=== PATIENT | male | born 1950 | race Caucasian/White ===

== ENCOUNTER → 2019-07-18 | Outpatient (CLI) | payer MEDICARE ==
[~2019-07-18] MED LIST: AMLO5TAB4 PO; ASPI-555 PO; ATOR40TA69 PO; CALC-866 PO; FERR324T4 PO; FERS325 PO; METO25 PO; TRAM50TA4 PO
== END | disposition home or self-care (01) ==
LOC: SHCH 09:48
PROVIDERS: ATTEND Internal Medicine Cardiovascular Disease
DX: I65.23 Occlusion and stenosis of bilateral carotid arteries (principal); R59.0 Localized enlarged lymph nodes; I87.2 Venous insufficiency (chronic) (peripheral)
CPT/HCPCS: 93880; 93970

== ENCOUNTER 2019-10-04 10:39 | Emergency (ER) | payer MEDICARE, OTHER | END 2019-10-04 12:22 | disposition home or self-care (01) | LOC: EDH 10:39 | DX: S20.211A Contusion of right front wall of thorax, initial encounter (principal); I10 Essential (primary) hypertension; E11.9 Type 2 diabetes mellitus without complications; I25.810 Atherosclerosis of coronary artery bypass graft(s) without angina pectoris; V29.9XXA Motorcycle rider (driver) (passenger) injured in unspecified traffic accident, initial encounter; Y93.89 Activity, other specified; Y92.89 Other specified places as the place of occurrence of the external cause; Y99.8 Other external cause status | CPT/HCPCS: 71046 ==

== ENCOUNTER → 2020-02-14 | Outpatient (CLI) | payer OTHER ==
[~2020-02-14] MED LIST changes: -ASPI-555 PO; +ASPI-556 PO
== END | disposition home or self-care (01) ==
LOC: SHCH 08:26
PROVIDERS: ATTEND Internal Medicine Cardiovascular Disease
DX: R06.00 Dyspnea, unspecified (principal)
CPT/HCPCS: 93306; 93356; 93880

== ENCOUNTER → 2020-12-12 | Outpatient (CLI) | payer OTHER | END | disposition home or self-care (01) | LOC: SHCH 08:57 | PROVIDERS: ATTEND Internal Medicine Cardiovascular Disease | DX: I73.9 Peripheral vascular disease, unspecified (principal) | CPT/HCPCS: 93925 ==

== ENCOUNTER 2023-03-02 17:54 | Emergency (ER) | payer OTHER ==
[~2023-03-02] VITALS: Ht 175.3 cm; Wt 85.3 kg
[2023-03-02] MEDS ORDERED: CEFTRIAXONE 500MG VIAL IM STA (20:50)
[2023-03-02] MEDS ORDERED: CEPH500B PO (20:52)
[2023-03-02] MEDS ORDERED: LIDOCAINE HCL 1% 20 ML VIAL ONE (20:58)
[2023-03-02] MEDS ORDERED: TETANUS/DIPHTHERIA TOXOID [ADULT] 0.5 ML VIAL IM ONE (21:00)
[2023-03-02] MEDS ORDERED: BACITRACIN 1 EACH PACKET TP ONE (21:00)
[2023-03-02 21:19] VITALS: BP 132/74
== END 2023-03-02 21:10 | disposition home or self-care (01) ==
LOC: EDH 17:54
DX: S91.111A Laceration without foreign body of right great toe without damage to nail, initial encounter (principal); E11.9 Type 2 diabetes mellitus without complications; E78.00 Pure hypercholesterolemia, unspecified; I10 Essential (primary) hypertension; Z79.82 Long term (current) use of aspirin; Z79.899 Other long term (current) drug therapy; Z95.1 Presence of aortocoronary bypass graft; X58.XXXA Exposure to other specified factors, initial encounter; Y93.89 Activity, other specified; Y92.89 Other specified places as the place of occurrence of the external cause; Y99.8 Other external cause status
CPT/HCPCS: 99283; 73630; 96372; 12002; J0696; 90714

== ENCOUNTER 2023-03-14 10:30 | Emergency (ER) | payer OTHER ==
[~2023-03-14] VITALS: Ht 175.3 cm; Wt 86.2 kg
[~2023-03-14 10:30] MED LIST changes: +CEPH500B PO
[2023-03-14 11:18] LABS: BASOPHILS % (AUTO) 0.8 % (0.0-5.0); EOSINOPHILS % (AUTO) 4.1 % (0.0-8.0); HEMATOCRIT 31.3 % (42-54); LYMPHOCYTES % (AUTO) 24.9 % (21.0-51.0); MEAN CORPUSCULAR HEMOGLOBIN 29.1 pg (27.0-33.0); MEAN CORPUSCULAR HGB CONC 31.6 g/dL (32.0-36.0); MEAN CORPUSCULAR VOLUME 92.1 fL (79-99); NEUTROPHILS % (AUTO) 60.6 % (40.0-77.0); PLATELET COUNT (AUTO) 174 K/uL (130-400); RED CELL DISTRIBUTION WIDTH 15.4 % (11.0-15.5); WHITE BLOOD COUNT (AUTO) 6.7 K/uL (4.8-10.8)
[2023-03-14] MEDS ORDERED: DOXY-469 PO (13:28)
[2023-03-14] MEDS ORDERED: DOXYCYCLINE HYCLATE 100 MG TABLET PO SCH (13:30)
[2023-03-14 13:45] VITALS: BP 142/70
[2023-03-14 13:53] LABS: CREATININE 3.7 mg/dL (0.5-1.5); POTASSIUM 4.2 mmol/L (3.5-5.1)
[2023-03-14 13:59] LABS: ALBUMIN 3.5 g/dL (3.5-5.0); TOTAL PROTEIN, SERUM 7.6 g/dL (6.0-8.3)
== END 2023-03-14 13:58 | disposition home or self-care (01) ==
LOC: EDH 10:30
DX: L03.031 Cellulitis of right toe (principal); E11.9 Type 2 diabetes mellitus without complications; I10 Essential (primary) hypertension; Z79.82 Long term (current) use of aspirin; Z79.899 Other long term (current) drug therapy; Z95.1 Presence of aortocoronary bypass graft
CPT/HCPCS: 36415; 73620; 80053; 83605; 85025; 86140

== ENCOUNTER 2023-03-28 23:14 | Emergency (ER) | payer MEDICARE, OTHER ==
[~2023-03-28] VITALS: Ht 175.3 cm; Wt 86.2 kg
[~2023-03-28 23:14] MED LIST changes: +DOXY-469 PO
[2023-03-29 00:03] LABS: BASOPHILS % (AUTO) 0.5 % (0.0-5.0); EOSINOPHILS % (AUTO) 0.8 % (0.0-8.0); HEMATOCRIT 32.7 % (42-54); LYMPHOCYTES % (AUTO) 8.8 % (21.0-51.0); MEAN CORPUSCULAR HEMOGLOBIN 30.2 pg (27.0-33.0); MEAN CORPUSCULAR HGB CONC 32.4 g/dL (32.0-36.0); MEAN CORPUSCULAR VOLUME 93.2 fL (79-99); MONOCYTES % (AUTO) 5.6 % (3.0-13.0); PLATELET COUNT (AUTO) 157 K/uL (130-400); RED BLOOD CELL COUNT(AUTO) 3.51 MIL/uL (4.50-6.20); RED CELL DISTRIBUTION WIDTH 15.6 % (11.0-15.5); WHITE BLOOD COUNT (AUTO) 10.9 K/uL (4.8-10.8)
[2023-03-29 00:19] LABS: CREATININE 3.7 mg/dL (0.5-1.5); POTASSIUM 4.3 mmol/L (3.5-5.1)
[2023-03-29 00:24] LABS: ALBUMIN 3.7 g/dL (3.5-5.0); TOTAL PROTEIN, SERUM 7.9 g/dL (6.0-8.3)
[2023-03-29] MEDS ORDERED: DEXAMETHASONE SOD PHOSPHATE 4 MG/ML 1ML VIAL IVP ONE (00:30)
[2023-03-29] MEDS ORDERED: METOCLOPRAMIDE 10 MG/2 ML VIAL IVP ONE (00:30)
[2023-03-29] MEDS ORDERED: FAMOTIDINE 20MG VIAL IV ONE (00:30)
[2023-03-29] MEDS ORDERED: LACTATED RINGERS 1000ML 1,000 ML IV ONE (00:30)
[2023-03-29 02:28] VITALS: BP 148/72
== END 2023-03-29 02:35 | disposition home or self-care (01) ==
LOC: EDH 23:14
DX: U07.1 COVID-19 (principal); E78.00 Pure hypercholesterolemia, unspecified; I10 Essential (primary) hypertension; Z79.52 Long term (current) use of systemic steroids; Z79.82 Long term (current) use of aspirin; Z79.899 Other long term (current) drug therapy; Z95.1 Presence of aortocoronary bypass graft
CPT/HCPCS: 99284; 96374; 96375; 87635; 80053; 85025; 87804 ×2; 83605; 36415; 71045; C9803; J1100; J3490; J2765

== ENCOUNTER 2023-03-30 23:59 | Emergency (ER) | payer OTHER, MEDICARE ==
[~2023-03-30] VITALS: Ht 175.3 cm; Wt 86.2 kg
[2023-03-31 00:03] VITALS: BP 152/66
[2023-03-31] MEDS ORDERED: ACETAMINOPHEN 500 MG TABLET PO ONE (05:00)
[2023-03-31] MEDS ORDERED: ALBUTEROL 0.083% 2.5 MG/3 ML INH IH ONE (05:00)
[2023-03-31] MEDS ORDERED: FAMOTIDINE 20MG VIAL IV ONE (05:00)
[2023-03-31] MEDS ORDERED: DEXAMETHASONE SOD PHOSPHATE 4 MG/ML 1ML VIAL IV ONE (05:00)
[2023-03-31 05:51] LABS: BASOPHILS % (AUTO) 0.4 % (0.0-5.0); EOSINOPHILS % (AUTO) 0.3 % (0.0-8.0); HEMATOCRIT 35.1 % (42-54); LYMPHOCYTES % (AUTO) 26.1 % (21.0-51.0); MEAN CORPUSCULAR HEMOGLOBIN 29.5 pg (27.0-33.0); MEAN CORPUSCULAR HGB CONC 31.9 g/dL (32.0-36.0); MEAN CORPUSCULAR VOLUME 92.4 fL (79-99); MONOCYTES % (AUTO) 14.8 % (3.0-13.0); NEUTROPHILS % (AUTO) 57.7 % (40.0-77.0); PLATELET COUNT (AUTO) 144 K/uL (130-400); RED CELL DISTRIBUTION WIDTH 15.6 % (11.0-15.5); WHITE BLOOD COUNT (AUTO) 6.7 K/uL (4.8-10.8)
[2023-03-31 06:23] LABS: CREATININE 3.8 mg/dL (0.5-1.5); POTASSIUM 4.2 mmol/L (3.5-5.1)
== END 2023-03-31 07:03 | disposition home or self-care (01) ==
LOC: EDH 23:59
DX: U07.1 COVID-19 (principal); I10 Essential (primary) hypertension; E11.9 Type 2 diabetes mellitus without complications; Z79.82 Long term (current) use of aspirin; Z79.899 Other long term (current) drug therapy
CPT/HCPCS: 99284; 82550; 80048; 85025; 83605; 36415; 96374; 96375; J1100; J3490

== ENCOUNTER → 2023-10-06 | Outpatient (CLI) | payer OTHER ==
[~2023-10-06] MED LIST changes: +REGADENOSON 0.4 MG/5 ML PF SYG IVP ONE
== END | disposition home or self-care (01) ==
LOC: SHCH 08:42
PROVIDERS: ATTEND Internal Medicine Cardiovascular Disease
DX: I25.10 Atherosclerotic heart disease of native coronary artery without angina pectoris (principal); I10 Essential (primary) hypertension
CPT/HCPCS: 78452; 96374; 93017; J2785; A9500 ×2

== ENCOUNTER → 2023-11-10 | Outpatient (CLI) | payer OTHER ==
[~2023-11-10] MED LIST changes: -REGADENOSON 0.4 MG/5 ML PF SYG IVP ONE
== END | disposition home or self-care (01) ==
LOC: SHCH 13:42
PROVIDERS: ATTEND Internal Medicine Cardiovascular Disease
DX: I11.9 Hypertensive heart disease without heart failure (principal); I65.23 Occlusion and stenosis of bilateral carotid arteries; E11.9 Type 2 diabetes mellitus without complications; E78.5 Hyperlipidemia, unspecified; I25.10 Atherosclerotic heart disease of native coronary artery without angina pectoris; Z95.1 Presence of aortocoronary bypass graft; Z79.82 Long term (current) use of aspirin; Z79.899 Other long term (current) drug therapy
CPT/HCPCS: 93306; 93880

== ENCOUNTER → 2024-01-01 | Outpatient (CLI) | payer OTHER ==
[~2024-01-01] MED LIST changes: +ATOR10TA69 PO; -ATOR40TA69 PO; +CALC-1125 PO; -CALC-866 PO; -CEPH500B PO; +CHOL100040 PO; +CLOP75TA32 PO; -DOXY-469 PO; +EPOE10003 IJ; -FERR324T4 PO; +LISI1TAB53 PO; -METO25 PO; +METO50TA18 PO; -TRAM50TA4 PO
== END | disposition home or self-care (01) ==
LOC: SHCH 08:03
PROVIDERS: ATTEND Internal Medicine Cardiovascular Disease
DX: I25.10 Atherosclerotic heart disease of native coronary artery without angina pectoris (principal)
CPT/HCPCS: 93975

== ENCOUNTER 2024-05-23 09:30 | Inpatient (IN) | payer OTHER ==
[~2024-05-23] VITALS: Ht 175.3 cm; Wt 76.3 kg
[2024-05-23] VITALS (20 sets, daily range): BP systolic 144–183; BP diastolic 51–90; PULSE 68–95; RESP 16–18; TEMP 97.9–99.1; O2SAT 96
[2024-05-23 11:03] LABS: BASOPHILS # (AUTO) 0.06 K/uL (0.00-0.20); EOSINOPHILS # (AUTO) 0.21 K/uL (0.00-0.70); EOSINOPHILS % (AUTO) 3.6 % (0.0-8.0); HEMATOCRIT 31.5 % (42-54); IMMATURE GRANULOCYTE ABSOLUTE 0.03 K/uL (0-1); LYMPHOCYTES # (AUTO) 1.5 K/uL (1.0-4.8); LYMPHOCYTES % (AUTO) 26.2 % (21.0-51.0); MEAN CORPUSCULAR HEMOGLOBIN 29.7 pg (27.0-33.0); MEAN CORPUSCULAR HGB CONC 31.4 g/dL (32.0-36.0); MEAN CORPUSCULAR VOLUME 94.6 fL (79-99); MONOCYTES # (AUTO) 0.4 K/uL (0.1-1.0); MONOCYTES % (AUTO) 7.1 % (3.0-13.0); NEUTROPHILS # (AUTO) 3.5 K/uL (1.8-7.7); NEUTROPHILS % (AUTO) 61.6 % (40.0-77.0); PLATELET COUNT (AUTO) 189 K/uL (130-400); RED BLOOD CELL COUNT(AUTO) 3.33 MIL/uL (4.50-6.20); RED CELL DISTRIBUTION WIDTH 15.9 % (11.0-15.5); WHITE BLOOD COUNT (AUTO) 5.8 K/uL (4.8-10.8)
[2024-05-23 11:05] LABS: INR 1.01 (0.85-1.15); PROTHROMBIN TIME 10.9 SEC (9.6-11.6)
[2024-05-23 11:06] LABS: PARTIAL THROMBOPLASTIN TIME 26.3 SEC (26.3-35.5)
[2024-05-23] MEDS ORDERED: FISH1CAP20 PO (11:08)
[2024-05-23] MEDS ORDERED: [UNRECOGNIZED DRUG - CODE] PO (11:08)
[2024-05-23] MEDS ORDERED: HYDR-3420 PO (11:08)
[2024-05-23 11:10] LABS: CREATININE 5.6 mg/dL (0.5-1.3); POTASSIUM 3.9 mmol/L (3.5-5.1)
[2024-05-23 11:19] LABS: APPEARANCE,URINE CLEAR (CLEAR); BILIRUBIN,URINE NEGATIVE (NEGATIVE); COLOR,URINE LIGHT-YELLOW (YELLOW); GLUCOSE, URINE (UA) 70 mg/dL (NEGATIVE); KETONES,URINE NEGATIVE (NEGATIVE); LEUKOCYTE ESTERASE ,URINE NEGATIVE Leu/uL (NEGATIVE); NITRATE,URINE NEGATIVE (NEGATIVE); PROTEIN,URINE 300 mg/dL (NEGATIVE); UROBILINOGEN,URINE 0.2 mg/dL (0.2-1.0)
[2024-05-23 11:20] LABS: ADD UA MICROSCOPIC YES
[2024-05-23 11:28] LABS: BACTERIA,URINE RARE /HPF (None Seen); MUCUS,URINE RARE LPF (None Seen); RBC,URINE 0-1 /HPF (0-1); SQUAMOUS EPITHELIAL CELL,UR RARE /HPF (0-2)
[2024-05-23 11:29] LABS: % IRON SATURATION 45.8 % (30-44)
[2024-05-23] MEDS ORDERED: ONDANSETRON 4MG INJ IVP PRN (11:30)
[2024-05-23] MEDS ORDERED: acetaMINOPHEN 325 MG TAB PO PRN (11:30)
[2024-05-23 11:35] LABS: ALBUMIN 2.9 g/dL (3.5-5.0); BILIRUBIN,TOTAL 0.3 mg/dL (0.2-1.0); TOTAL PROTEIN, SERUM 6.6 g/dL (6.0-8.3)
[2024-05-23 12:00] LABS: HIV 1&2 ANTIBODY Non-Reactive (Negative); HIV-1 p24 Antigen Non-Reactive (Negative)
[2024-05-23] MEDS ORDERED: LIDOCAINE HCL 400MG/20ML VIAL ONE (13:36)
[2024-05-23] MEDS ORDERED: HEParin-NS 1,000 UNIT/500 ML 500 ML IV ONE (13:37)
[2024-05-23] MEDS ORDERED: FENTanyl CITRate PF 50 MCG/1 ML 2ML VIAL ONE (13:37)
[2024-05-23] MEDS ORDERED: MIDAZOLAM HCL 1 MG/ML 2ML VIAL ONE (13:37)
[2024-05-23] MEDS ORDERED: HEParin 1,000 UNIT VIAL ONE (13:38)
[2024-05-23] MEDS: 0.9%NACL 1000ML 1,000 ML IV SCH (15:46)
[2024-05-23] MEDS: hydrALAZine 20MG/ML VIAL IV PRN (18:42)
[2024-05-23] MEDS: hydrALAZine HCL 10 MG TABLET PO SCH (20:39)
[2024-05-23] MEDS: FISH OIL 1000 MG/CAP PO SCH (20:40)
[2024-05-23] MEDS: metoPROLOL tartRATE 50 MG TAB PO SCH (20:40)
[2024-05-23] MEDS: atorVAStatin 10 MG TABLET PO SCH (20:46)
[2024-05-24] VITALS (21 sets, daily range): BP systolic 128–175; BP diastolic 60–86; PULSE 66–89; RESP 16–20; TEMP 97.9–99.1; O2SAT 96–99
[2024-05-24 04:10] LABS: HEPATITIS B CORE AB TOTAL Non-Reactive (Nonreactive); HEPATITIS B SURFACE ANTIBODY Negative (Reactive); HEPATITIS B SURFACE ANTIGEN Non-Reactive (Nonreactive)
[2024-05-24 04:21] LABS: BASOPHILS # (AUTO) 0.04 K/uL (0.00-0.20); BASOPHILS % (AUTO) 0.8 % (0.0-5.0); EOSINOPHILS # (AUTO) 0.17 K/uL (0.00-0.70); EOSINOPHILS % (AUTO) 3.3 % (0.0-8.0); HEMATOCRIT 27.2 % (42-54); IMMATURE GRANULOCYTE ABSOLUTE 0.01 K/uL (0-1); LYMPHOCYTES # (AUTO) 1.4 K/uL (1.0-4.8); LYMPHOCYTES % (AUTO) 27.9 % (21.0-51.0); MEAN CORPUSCULAR HEMOGLOBIN 29.6 pg (27.0-33.0); MEAN CORPUSCULAR HGB CONC 32.4 g/dL (32.0-36.0); MEAN CORPUSCULAR VOLUME 91.6 fL (79-99); MONOCYTES # (AUTO) 0.5 K/uL (0.1-1.0); MONOCYTES % (AUTO) 10.4 % (3.0-13.0); NEUTROPHILS # (AUTO) 2.9 K/uL (1.8-7.7); NEUTROPHILS % (AUTO) 57.4 % (40.0-77.0); PLATELET COUNT (AUTO) 147 K/uL (130-400); RED BLOOD CELL COUNT(AUTO) 2.97 MIL/uL (4.50-6.20); RED CELL DISTRIBUTION WIDTH 15.2 % (11.0-15.5); WHITE BLOOD COUNT (AUTO) 5.1 K/uL (4.8-10.8)
[2024-05-24 04:37] LABS: HEMOGLOBIN A1C 5.9 % (4.0-6.0)
[2024-05-24 04:44] LABS: CREATININE 4.4 mg/dL (0.5-1.3); PHOSPHORUS 5.1 mg/dL (2.5-4.9); POTASSIUM 3.1 mmol/L (3.5-5.1); THYROID STIMULATING HORMONE 2.12 uIU/mL (0.36-3.74)
[2024-05-24] MEDS: Cholecalciferol (Vitamin D3) 25 MCG PO SCH (09:00)
[2024-05-24] MEDS: amLODIPine 5 MG TAB PO SCH (09:00)
[2024-05-24] MEDS: FERROUS SULFATE 325 MG TABLET.DR PO SCH (09:00)
[2024-05-24] MEDS: ASPIRIN 81 MG EC TAB PO SCH (09:00)
[2024-05-24] MEDS ORDERED: NON-FORMULARY MEDICATION 1 EACH (Ferrous Sulfate 325 MG) PO SCH (09:00)
[2024-05-24] MEDS ORDERED: 0.9%NACL 1000ML 1,000 ML IV SCH (09:30)
[2024-05-24] MEDS: LISINOPRIL 40 MG TABLET PO ONE ×2 (10:11→14:52)
[2024-05-24] MEDS: metOPROLol sucCINATE 50 MG TAB.SR.24H PO ONE (14:54)
[2024-05-24] MEDS ORDERED: PHARMACY COMMUNICATION MISC SCH (16:30)
[2024-05-24] MEDS: EPOETIN ALFA-EPBX (NON-ESRD) 10,000 UNIT/ML VIAL SQ SCH (16:38)
[2024-05-25] VITALS (12 sets, daily range): BP systolic 124–154; BP diastolic 48–71; PULSE 65–82; RESP 18–20; TEMP 97.8–98.4; O2SAT 96
[2024-05-25 05:26] LABS: BASOPHILS # (AUTO) 0.05 K/uL (0.00-0.20); EOSINOPHILS # (AUTO) 0.19 K/uL (0.00-0.70); EOSINOPHILS % (AUTO) 3.6 % (0.0-8.0); HEMATOCRIT 28.7 % (42-54); IMMATURE GRANULOCYTE ABSOLUTE 0.01 K/uL (0-1); LYMPHOCYTES # (AUTO) 1.9 K/uL (1.0-4.8); LYMPHOCYTES % (AUTO) 36.9 % (21.0-51.0); MEAN CORPUSCULAR HEMOGLOBIN 29.8 pg (27.0-33.0); MEAN CORPUSCULAR HGB CONC 32.4 g/dL (32.0-36.0); MONOCYTES # (AUTO) 0.6 K/uL (0.1-1.0); MONOCYTES % (AUTO) 12.3 % (3.0-13.0); NEUTROPHILS # (AUTO) 2.4 K/uL (1.8-7.7); PLATELET COUNT (AUTO) 150 K/uL (130-400); RED BLOOD CELL COUNT(AUTO) 3.12 MIL/uL (4.50-6.20); RED CELL DISTRIBUTION WIDTH 15.1 % (11.0-15.5); WHITE BLOOD COUNT (AUTO) 5.2 K/uL (4.8-10.8)
[2024-05-25 05:38] LABS: ALBUMIN 2.3 g/dL (3.5-5.0); BILIRUBIN,TOTAL 0.3 mg/dL (0.2-1.0); CREATININE 3.7 mg/dL (0.5-1.3); MAGNESIUM 1.3 mg/dL (1.80-2.40); POTASSIUM 3.1 mmol/L (3.5-5.1); TOTAL PROTEIN, SERUM 5.6 g/dL (6.0-8.3)
[2024-05-25] MEDS ORDERED: LIDOCAINE HCL 400MG/20ML VIAL ONE (08:28)
[2024-05-25] MEDS ORDERED: HEParin 1,000 UNIT VIAL ONE (08:28)
[2024-05-25] MEDS ORDERED: MIDAZOLAM HCL 1 MG/ML 2ML VIAL ONE (08:49)
[2024-05-25] MEDS ORDERED: FENTanyl CITRate PF 50 MCG/1 ML 2ML VIAL ONE (08:49)
[2024-05-25] MEDS ORDERED: metOPROLol sucCINATE 50 MG TAB.SR.24H PO SCH (09:00)
[2024-05-25] MEDS ORDERED: MAGNESIUM 2GM PREMIX 50ML 50 ML IV SCH (10:30)
[2024-05-25] MEDS: KCL 20 MEQ ERTAB PO ONE (13:08)
[2024-05-25] MEDS: LISINOPRIL 40 MG TABLET PO SCH (16:39)
[2024-05-25] MEDS: metOPROLol sucCINATE 50 MG TAB.SR.24H PO SCH (20:36)
[2024-05-26] VITALS (20 sets, daily range): BP systolic 139–182; BP diastolic 57–88; PULSE 60–76; RESP 16–20; TEMP 97.6–98.9; O2SAT 95–96
[2024-05-26 03:56] LABS: BASOPHILS # (AUTO) 0.05 K/uL (0.00-0.20); BASOPHILS % (AUTO) 0.8 % (0.0-5.0); EOSINOPHILS # (AUTO) 0.22 K/uL (0.00-0.70); EOSINOPHILS % (AUTO) 3.5 % (0.0-8.0); HEMATOCRIT 28.6 % (42-54); IMMATURE GRANULOCYTE ABSOLUTE 0.02 K/uL (0-1); LYMPHOCYTES # (AUTO) 2.2 K/uL (1.0-4.8); LYMPHOCYTES % (AUTO) 34.6 % (21.0-51.0); MEAN CORPUSCULAR HEMOGLOBIN 29.7 pg (27.0-33.0); MEAN CORPUSCULAR HGB CONC 31.8 g/dL (32.0-36.0); MEAN CORPUSCULAR VOLUME 93.5 fL (79-99); MONOCYTES # (AUTO) 0.6 K/uL (0.1-1.0); MONOCYTES % (AUTO) 10.1 % (3.0-13.0); NEUTROPHILS # (AUTO) 3.1 K/uL (1.8-7.7); NEUTROPHILS % (AUTO) 50.7 % (40.0-77.0); PLATELET COUNT (AUTO) 155 K/uL (130-400); RED BLOOD CELL COUNT(AUTO) 3.06 MIL/uL (4.50-6.20); WHITE BLOOD COUNT (AUTO) 6.2 K/uL (4.8-10.8)
[2024-05-26 04:13] LABS: ALBUMIN 2.3 g/dL (3.5-5.0); BILIRUBIN,TOTAL 0.3 mg/dL (0.2-1.0); CREATININE 4.1 mg/dL (0.5-1.3); MAGNESIUM 1.4 mg/dL (1.80-2.40); PHOSPHORUS 5.1 mg/dL (2.5-4.9); POTASSIUM 3.3 mmol/L (3.5-5.1); TOTAL PROTEIN, SERUM 5.6 g/dL (6.0-8.3)
[2024-05-26] MEDS: 0.9%NACL 1000ML 1,000 ML IV SCH (10:00)
[2024-05-26] MEDS ORDERED: 0.9% NACL 250ML 250 ML IV SCH (10:00)
[2024-05-26] MEDS: HEParin 5,000 UNIT VIAL SQ SCH (11:22)
[2024-05-26] MEDS ORDERED: MAGNESIUM 2GM PREMIX 50ML 50 ML IV SCH (16:00)
[2024-05-26] MEDS: KCL 20 MEQ ERTAB PO ONE (19:59)
[2024-05-26] MEDS: metOPROLol sucCINATE 50 MG TAB.SR.24H PO SCH (20:27)
[2024-05-26] MEDS: hydrALAZine 25MG TABLET PO SCH (20:27)
[2024-05-27] VITALS (8 sets, daily range): BP systolic 137–167; BP diastolic 56–88; PULSE 66–80; RESP 18–19; TEMP 98.1–99.2; O2SAT 95–98
[2024-05-27 05:19] LABS: HEMATOCRIT 28.6 % (42-54); MEAN CORPUSCULAR HEMOGLOBIN 29.7 pg (27.0-33.0); MEAN CORPUSCULAR HGB CONC 31.5 g/dL (32.0-36.0); MEAN CORPUSCULAR VOLUME 94.4 fL (79-99); RED BLOOD CELL COUNT(AUTO) 3.03 MIL/uL (4.50-6.20); RED CELL DISTRIBUTION WIDTH 15.1 % (11.0-15.5); WHITE BLOOD COUNT (AUTO) 6.4 K/uL (4.8-10.8)
[2024-05-27 05:35] LABS: ALBUMIN 2.3 g/dL (3.5-5.0); BILIRUBIN,TOTAL 0.3 mg/dL (0.2-1.0); CREATININE 3.2 mg/dL (0.5-1.3); MAGNESIUM 1.3 mg/dL (1.80-2.40); POTASSIUM 3.5 mmol/L (3.5-5.1); TOTAL PROTEIN, SERUM 5.7 g/dL (6.0-8.3)
[2024-05-27] MEDS: MAGNESIUM 2GM PREMIX 50ML 50 ML IV SCH (13:11)
[2024-05-27] MEDS: KCL 20 MEQ ERTAB PO ONE (13:11)
[2024-05-28] VITALS (21 sets, daily range): BP systolic 137–180; BP diastolic 51–74; PULSE 55–72; RESP 16–18; TEMP 97.6–98.7; O2SAT 99
[2024-05-28] MEDS ORDERED: 0.9%NACL 1000ML 1,000 ML IV PRN (12:00)
== END 2024-05-28 14:00 | disposition home or self-care (01) | DRG 673 ==
LOC: EDH 09:30 → EDHIP 09:31 → 4CH 12:52
PROVIDERS: ADMIT Hospitalist; ATTEND Hospitalist
PROC: 5A1D70Z Performance of Urinary Filtration, Intermittent, Less than 6 Hours Per Day (ICD-10-PCS; 2024-05-23)
PROC: 5A1D70Z Performance of Urinary Filtration, Intermittent, Less than 6 Hours Per Day (ICD-10-PCS; 2024-05-24)
PROC: 0JH63XZ Insertion of Tunneled Vascular Access Device into Chest Subcutaneous Tissue and Fascia, Percutaneous Approach (ICD-10-PCS; principal; 2024-05-25)
PROC: 02H633Z Insertion of Infusion Device into Right Atrium, Percutaneous Approach (ICD-10-PCS; 2024-05-25)
PROC: B5181ZA Fluoroscopy of Superior Vena Cava using Low Osmolar Contrast, Guidance (ICD-10-PCS; 2024-05-25)
PROC: 05HM33Z Insertion of Infusion Device into Right Internal Jugular Vein, Percutaneous Approach (ICD-10-PCS; 2024-05-25)
PROC: B543ZZA Ultrasonography of Right Jugular Veins, Guidance (ICD-10-PCS; 2024-05-25)
PROC: 5A1D70Z Performance of Urinary Filtration, Intermittent, Less than 6 Hours Per Day (ICD-10-PCS; 2024-05-26)
PROC: 5A1D70Z Performance of Urinary Filtration, Intermittent, Less than 6 Hours Per Day (ICD-10-PCS; 2024-05-28)
DX: I12.0 Hypertensive chronic kidney disease with stage 5 chronic kidney disease or end stage renal disease (principal); N18.6 End stage renal disease; Z99.2 Dependence on renal dialysis; E78.5 Hyperlipidemia, unspecified; I25.10 Atherosclerotic heart disease of native coronary artery without angina pectoris; D63.1 Anemia in chronic kidney disease; E11.22 Type 2 diabetes mellitus with diabetic chronic kidney disease; E11.51 Type 2 diabetes mellitus with diabetic peripheral angiopathy without gangrene; E11.40 Type 2 diabetes mellitus with diabetic neuropathy, unspecified; Z79.899 Other long term (current) drug therapy; Z95.1 Presence of aortocoronary bypass graft; I25.2 Old myocardial infarction; Z79.4 Long term (current) use of insulin
CPT/HCPCS: 36415; 36556; 36581; 71045; 77001; 80048; 80053; 80061; 81001; 82728; 82948; 83036; 83540; 83550; 83735; 84100; 84443; 85025; 85027; 85610; 85730; 86701; 86704; 86706; 86803; 87340; 87390; 90935; 93005; 93971; 99156; 99157; C1750; C1752; G0378; J0360; J1644; J2250; J3010; J3475; J3490; C1894; Q5106

== ENCOUNTER 2024-10-17 09:02 | Day surgery (SDC) | payer OTHER ==
[2024-10-17] VITALS (16 sets, daily range): BP systolic 119–158; BP diastolic 49–65; PULSE 56–70; RESP 13–16; TEMP 97.2–97.3
[~2024-10-17] VITALS: Ht 172.7 cm; Wt 78.9 kg
[~2024-10-17 09:02] MED LIST changes: +0.9% NACL 500ML IV.SOLN 500 ML IV ONE; -AMLO5TAB4 PO; -CLOP75TA32 PO; -EPOE10003 IJ; +FISH1CAP20 PO; -LISI1TAB53 PO; +RENVELA PO; +ceFAZolin SODIUM 2 GM VIAL ONE
[2024-10-17 09:29] LABS: HEMATOCRIT 36.7 % (42-54); MEAN CORPUSCULAR HEMOGLOBIN 32.8 pg (27.0-33.0); MEAN CORPUSCULAR HGB CONC 32.4 g/dL (32.0-36.0); MEAN CORPUSCULAR VOLUME 101.1 fL (79-99); RED BLOOD CELL COUNT(AUTO) 3.63 MIL/uL (4.50-6.20); RED CELL DISTRIBUTION WIDTH 14.8 % (11.0-15.5); WHITE BLOOD COUNT (AUTO) 6.4 K/uL (4.8-10.8)
[2024-10-17 09:39] LABS: CREATININE 5.3 mg/dL (0.5-1.3)
[2024-10-17 09:41] LABS: INR 0.97 (0.85-1.15); PROTHROMBIN TIME 10.9 SEC (9.6-11.6)
[2024-10-17 09:43] LABS: PARTIAL THROMBOPLASTIN TIME 25.4 SEC (26.3-35.5)
--- NOTE | 2024-10-17 10:00 | HMCIMG ---
CHEST 1VW HISTORY: Surgery COMPARISON: 07/06/2024 FINDINGS: A frontal projection of the chest was obtained. No acute pulmonary infiltrates is seen. Poststernotomy changes are seen. The heart is enlarged. Degenerative changes of the thoracolumbar spine are present. Right venous catheter is seen. No evidence of aortic calcification is seen. IMPRESSION: 1. No acute pulmonary infiltrate is seen.
--- NOTE | 2024-10-17 10:08 | EKG ---
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
[2024-10-17] MEDS ORDERED: INSNOV SQ (10:12)
[2024-10-17] MEDS ORDERED: AMLO-257 PO (10:12)
[2024-10-17] MEDS ORDERED: SEVE800PW PO (10:12)
[2024-10-17] MEDS ORDERED: LIDOCAINE PF 100MG/5ML (2%) SYRINGE 5ML ONE (10:14)
[2024-10-17] MEDS ORDERED: rocuRONium bROMide 10MG/1ML 5ML VL ONE (10:15)
[2024-10-17] MEDS ORDERED: proPOFol 10 MG/ML 20ML VIAL IV ONE (10:15)
[2024-10-17] MEDS ORDERED: FENTanyl CITRate PF 50 MCG/1 ML 2ML VIAL ONE (10:16)
[2024-10-17] MEDS ORDERED: acetaMINOPHEN 100 ML ONE (10:26)
[2024-10-17] MEDS ORDERED: FAMOTIDINE 20MG VIAL IV ONE (10:27)
[2024-10-17] MEDS ORDERED: HEParin-NS 1,000 UNIT/500 ML 500 ML IV ONE (10:37)
[2024-10-17] MEDS ORDERED: BUPIvacaine/PF 0.25% 30ML VIAL IJ ONE (10:37)
[2024-10-17] MEDS ORDERED: LIDOCAINE HCL 1% 20 ML VIAL ONE (10:37)
[2024-10-17] MEDS ORDERED: ceFAZolin SODIUM 1 GM VIAL ONE (10:37)
[2024-10-17] MEDS: ceFAZolin SODIUM 2 GM VIAL IVPB ONE (11:08)
[2024-10-17] MEDS ORDERED: ondanSETRON 4MG INJ ONE (12:09)
[2024-10-17] MEDS ORDERED: dexaMETHasone SOD PHOSPHATE 10MG/ML 1ML VIAL ONE (12:09)
[2024-10-17] MEDS ORDERED: NEOSTIGMINE METHYLSULFATE 1MG/ML IV ONE (12:23)
[2024-10-17] MEDS ORDERED: GLYCOPYRROLATE 0.2 MG/ML 5 ML VIAL ONE (12:23)
[2024-10-17] MEDS ORDERED: PROTamine SULFate 10 MG/ML 5 ML VIAL ONE (12:50)
[2024-10-17] MEDS ORDERED: HEParin 10,000 UNIT/10ML (1,000 UNIT/ML) VIAL ONE (12:50)
--- NOTE | 2024-10-17 17:11 | OP ---
DATE OF PROCEDURE: 10/17/2024 PREOPERATIVE DIAGNOSIS: End-stage renal disease. POSTOPERATIVE DIAGNOSIS: End-stage renal disease. PROCEDURE PERFORMED: Left brachiocephalic AV fistula. OPERATING SURGEON: Venkata Cisneros MD MEDIA OPERATOR: Luciana Madrid. TYPE OF ANESTHESIA: General endotracheal anesthesia delivered by a EMERGENCY VEHICLE OPERATIONS INSTRUCTOR. BRIEF HISTORY: The patient is a 74-year-old male with end-stage renal disease, hyperlipidemia, hypertension, diabetes mellitus, and known coronary artery disease, who requires hemodialysis access. He presents now for a left-sided AV fistula. FINDINGS: The patient had a 4 mm cephalic vein at the antecubital fossa and a roughly 4 mm brachial artery. A brachiocephalic AV fistula was performed. DESCRIPTION OF PROCEDURE: The patient was brought to the operating room and placed on the operating table in supine position. He was given general endotracheal anesthesia. After placement of lines and catheters, his left arm was prepped and draped in the usual sterile fashion. A transverse incision was made in the left antecubital fossa and the left cephalic vein and brachial artery dissected out. The patient was given 5000 units of heparin. The cephalic vein was doubly clipped distally and divided. The brachial artery was then clamped proximal and distal to the target site, which was opened on its anterior wall with 11 blade scalpel and 2 firings of a 2.8 mm hole punch. The proximal end of the cephalic vein was anastomosed to the side of the brachial artery using a running 7-0 Prolene suture. The clamps were released and there was good flow into the cephalic vein as measured by Doppler. The patient was given 50 mg of protamine. The wound was injected with a total of 9 mL of a 50:50 mixture of 1% lidocaine and 0.25% Marcaine for postop pain relief. The wound was then closed with 2 layers of running Vicryl suture. The skin was closed using a running intracuticular Monocryl stitch. The wounds were cleaned and dried, covered with bandages. The patient was undraped, extubated, and taken to the recovery room and then to Outpatient Surgery in stable condition. TID: [id number] RECEIPT: [id number] cc: MATTHIAS GUERRA MD(User), Luciana Madrid
== END 2024-10-17 14:46 | disposition home or self-care (01) ==
LOC: DAH 09:02 → DAHIP 09:02 → DAH 09:19
PROVIDERS: ATTEND Thoracic Surgery (Cardiothoracic Vascular Surgery)
DX: I12.0 Hypertensive chronic kidney disease with stage 5 chronic kidney disease or end stage renal disease (principal); N18.6 End stage renal disease; E11.22 Type 2 diabetes mellitus with diabetic chronic kidney disease; E78.5 Hyperlipidemia, unspecified; I25.2 Old myocardial infarction; I25.10 Atherosclerotic heart disease of native coronary artery without angina pectoris; Z79.82 Long term (current) use of aspirin; Z99.2 Dependence on renal dialysis; Z95.1 Presence of aortocoronary bypass graft; Z79.84 Long term (current) use of oral hypoglycemic drugs; Z79.899 Other long term (current) drug therapy
CPT/HCPCS: 36821; 80048; 85027; 85610; 85730; 86850; 86900; 86901; 82948 ×2; 36415; 71045; 93005; A4663; J7030; J7040; J3490 ×3; J3010; J0690 ×4; J1100; J0665 ×2; J2003; J2720; J1644 ×2; J2704; J2405; J2710; A4649; C1713 ×2; A4215; A4223; A4222; A4221

== ENCOUNTER 2024-11-18 18:36 | Emergency (ER) | payer OTHER ==
[~2024-11-18] VITALS: Ht 175.3 cm; Wt 77.1 kg
[~2024-11-18 18:36] MED LIST changes: -0.9% NACL 500ML IV.SOLN 500 ML IV ONE; +AMLO-257 PO; +INSNOV SQ; -RENVELA PO; +SEVE800PW PO; -ceFAZolin SODIUM 2 GM VIAL ONE
--- NOTE | 2024-11-18 18:59 | ERN ---
ED Note History of Present Illness Stated Complaint: TOE LAC Chief Complaint: Laceration/Avulsion Time Seen by MD: 18:45 Time Seen by Midlevel: 18:45 Dictation: 74-year-old male history of DM, who presents to the ED for evaluation laceration to his right great toe. Patient reports he got his toe stuck in rug and cut himself. Allergies: Coded Allergies: No Known Drug Allergies (Unverified Allergy, Unknown, 01/03/19) Home Meds Active Scripts Cephalexin Monohydrate (Keflex) 500 Mg Cap, 1 CAP PO TID for 7 Days, #30 CAP 0 Refills Prov:LIA GUERRA 11/18/24 Reported Medications Amlodipine Besylate (Amlodipine Besylate) 5 Mg Tablet, 5 MG PO DAILY, TAB 10/17/24 Sevelamer Carbonate (Renvela Pwdr) 0.8 Gram Powder, 800 MG PO TID, APPL 10/17/24 Insulin Aspart (Novolog) 100 Unit/Ml Inj, SQ CONTINUOUS, ML 10/17/24 [place]-3 Fatty Acids/Fish Oil (Fish Oil 1000 mg/Cap) 300 Mg-1,000 Mg Capsule, 1000 MG PO BID, CAP 05/23/24 Calcium Carbonate (Calcium) 600 Mg Calcium (1500 Mg) Tablet, 600 MG PO BID, TAB 12/01/23 Cholecalciferol (Vitamin D3) (Vitamin D3) 25 Mcg (1000 Unit) Capsule, 25 MCG PO AM, CAP 11/27/23 Metoprolol Tartrate (Metoprolol Tartrate) 50 Mg Tablet, 50 MG PO HS, TAB 11/27/23 Atorvastatin Calcium (Atorvastatin Calcium) 10 Mg Tablet, 5 MG PO HS, TAB 11/27/23 Aspirin (Aspir 81) 81 Mg Tablet.dr, 81 MG PO HS, TAB 01/03/19 Ferrous Sulfate (Ferrous Sulfate) 325 Mg (65 Mg Iron) Ectab, 325 MG PO TUES,TH,SAT, TAB.EC 01/03/19 Past Medical History Past Medical History: Diabetes-Type II, Heart Disease, Hypertension, [place], Renal Failure Surgical History: CABG Surgical History Other: PORT-A-CATH RN Note Reviewed/Agreed w/PFSH: Yes Review of System Dictation Constitutional: Negative for fever,chills, and weight loss Eyes: Negative for injury, pain,redness, and discharge ENT: Negative for injury,pain or swelling Cardiovascular: Negative for chest pain, palpitations, and edema Respiratory: Negative for shortness of breath, cough, and wheezing, Abdomen/GI: Negative for abdominal pain, nausea, vomiting, diarrhea, and cons tipation Back: Negative for injury and pain : Negative for injury, bleeding and discharge MS/Extremity: Negative for injury and deformity Skin: Negative for rash, and discoloration Neuro: Negative for headache, weakness, numbness, tingling, and seizure Psych: Negative for suicide ideation, homicidal ideation, and hallucinations Review of Systems: was completed Initial Vital Sign VS Vital Signs Date Time Temp Pulse Resp B/P (MAP) Pulse Ox O2 Delivery O2 Flow Rate FiO2 11/18/24 18:38 59 18 128/49 98 Room Air 0 11/18/24 22:24 97.9 21 Physical Exam Dictation General: awake, alert, NAD Head/Face: Normocephalic, atraumatic Eyes: PERRL, EOMI, vision at baseline ENT: oral cavity clear, TMs clear, no signs of infection Neck: Trachea midline, supple, no nuchal rigidity Cardiovascular: RRR, normal S1/S2, No MRGs, no JVD Respiratory: CTAB, no respiratory distress, No rales or wheezes Abdomen: Soft, non-tender, non-distended, normal bowel sounds, no guarding or rebound. Skin: Warm, dry, normal turgor, no rash. Small skin tear to right great toe at the base,. Nailbed intact MS/Extremity: Pulses equal, no cyanosis, neurovascular intact, FROM Neuro: COAx4, GCS 15, strength 5/5, CN 2-12 intact, normal cerebellar exam, normal gait, Psych: Normal behavior, mood, and affect normal Results (Laboratory/Radiology) Labs Reviewed?: Yes X-RAY Comment: PATIENT: REZA KOHLER MR#: [id number] : 1950 SEX: M AGE: 74 LOCATION: [facility] ORDER 54 STATUS: REG ER REPORT#: [id number] SERVICE 53 REASON: toe injury, laceration ORDERING PHYSICIAN: LIA GUERRA PROCEDURE: TOES RT - TOE(S) 2+VWS RT TOE(S) 2+VWS RT CLINICAL HISTORY: toe injury, laceration COMPARISON: None TECHNIQUE: AP lateral and oblique images were obtained. FINDINGS: There is soft tissue laceration of the first digit and remodeling of the distal phalanx but no obvious acute fracture line or foreign body. IMPRESSION: Soft tissue laceration with no identified fracture or foreign body. DICTATED BY: KAROLINA RATLIFF DO DATE: 11/18/242050 ELECTRONICALLY SIGNED BY: KAROLINA RATLIFF DO DATE: 11/18/242058 ED Course ED Course Orders Procedure Category Date Status Time Toe(S) 2+Vws Rt RAD 11/18/24 Resulted 18:54 Cefazolin Sodium PHA 11/18/24 Complete (Ancef) 20:49 Diph,Pertuss(Acell),Tet PHA 11/18/24 Complete Vac/Pf (Tdap) 21:00 Current Medications Medications (Trade) Dose Ordered Sig/Tahmina Route PRN Reason Start Time Stop Time Status Last Admin Dose Admin Cefazolin Sodium (Ancef) 2 gm ONCE IVPB 11/18/24 20:49 11/18/24 23:57 DC 11/18/24 22:23 Diphtheria/ Tetanus/Acell Pertussis (Tdap) 0.5 ml ONCE ONCE IM 11/18/24 21:00 11/18/24 21:01 DC 11/18/24 22:21 Vital Signs Date Time Temp Pulse Resp B/P (MAP) Pulse Ox O2 Delivery O2 Flow Rate FiO2 11/18/24 22:24 97.9 78 20 131/74 98 Room Air* 0 21 11/18/24 18:38 59 18 128/49 98 Room Air 0 Medical Decision Making MDM MDM: Differential diagnosis: Fracture, dislocation, laceration, skin tear, abrasion Need for hospitalization: Patient does meet criteria for hospitalization. Need for emergency major/minor surgery: No I independently interpreted the test that were performed, results were reviewed by me and considered findings on radiology if ordered. Medical management and examination interpretation discussions were had by me with other qualified healthcare professionals as indicated for the patient's care. Patient coming in with a small laceration to the right great toe. Nail bed intact. X-ray reports no acute fracture but my independent interpretation shows possible fracture of the toe and based on pain to palpation will treat as such. Patient was given dose of Ancef here in the ER and updated on Tdap. Bleeding was controlled with, gauze and pressure wrapping. Normal capillary refill less than 2 seconds. No need for sutures at this time but educated patient return precautions. Patient was diabetic on be discharged home with antibiotics. Recommended follow up with Podiatry or ortho. Patient was given referral to both. Patient also recommended follow up with PCP. Patient verbalized understanding, agreed with the plan, and all questions were answered at this time. DX & DISP Disposition: Discharge Departure Impression: Primary Impression: Laceration of right great toe Additional Impression: possible fracture right great toe Condition: Stable Scripts Cephalexin Monohydrate (Keflex) 500 Mg Cap 1 CAP PO TID for 7 Days, #30 CAP 0 Refills Prov: LIA GUERRA 11/18/24 Additional Instructions: DISCHARGE HOME. REST. FOLLOW UP WITH PRIMARY CARE DRJorge IN 24 HOURS. RETURN TO THE ER FOR ANY ACUTE CHANGE. PATIENT WAS ALSO ADVISED TO FOLLOW-UP WITH PRIMARY CARE PHYSICIAN IN 1 TO 2 DAYS FOR CONTINUED MONITORING. ALL INSTRUCTIONS WERE GIVEN TO LAYMANS TERM AND PATIENT AGREEABLE TO DISCHARGE AND PROPER FOLLOW-UP. Referrals: HUSSEIN ROBLERO MD (PCP) VERA GEIGER MD, LUIS R DPM I have reviewed the case, and I agree with, Diagnosis and Plan LIA GUERRA Nov 18, 2024 18:59
--- NOTE | 2024-11-18 20:59 | HMCIMG ---
TOE(S) 2+VWS RT CLINICAL HISTORY: toe injury, laceration COMPARISON: None TECHNIQUE: AP lateral and oblique images were obtained. FINDINGS: There is soft tissue laceration of the first digit and remodeling of the distal phalanx but no obvious acute fracture line or foreign body. IMPRESSION: Soft tissue laceration with no identified fracture or foreign body.
[2024-11-18] MEDS: DIPH,PERTUSS(ACELL),TET VAC/PF 0.5 ML VIAL IM ONE (22:21)
[2024-11-18] MEDS: ceFAZolin SODIUM 2 GM VIAL IVPB SCH (22:23)
[2024-11-18 22:24] VITALS: BP 131/74; PULSE 78; RESP 20; TEMP 97.8; O2SAT 98
[2024-11-18] MEDS ORDERED: CEPH500B PO (23:29)
== END 2024-11-18 23:57 | disposition home or self-care (01) ==
LOC: EDH 18:36
DX: S91.111A Laceration without foreign body of right great toe without damage to nail, initial encounter (principal); E11.9 Type 2 diabetes mellitus without complications; I11.9 Hypertensive heart disease without heart failure; Z79.82 Long term (current) use of aspirin; Z95.1 Presence of aortocoronary bypass graft; W26.8XXA Contact with other sharp object(s), not elsewhere classified, initial encounter; Y93.89 Activity, other specified; Y92.89 Other specified places as the place of occurrence of the external cause; Y99.8 Other external cause status
CPT/HCPCS: 99284; 96365; 90715; 73660; 90471; J0690

== ENCOUNTER 2024-12-03 13:10 | Emergency (ER) | payer OTHER, MEDICARE ==
[~2024-12-03] VITALS: Ht 172.7 cm; Wt 77.1 kg
[~2024-12-03 13:10] MED LIST changes: +CEPH500B PO
[2024-12-03 14:12] LABS: BASOPHILS # (AUTO) 0.06 K/uL (0.00-0.20); BASOPHILS % (AUTO) 0.8 % (0.0-5.0); EOSINOPHILS # (AUTO) 0.24 K/uL (0.00-0.70); HEMATOCRIT 40.5 % (42-54); IMMATURE GRANULOCYTE ABSOLUTE 0.02 K/uL (0-1); LYMPHOCYTES # (AUTO) 2.3 K/uL (1.0-4.8); MEAN CORPUSCULAR HEMOGLOBIN 33.8 pg (27.0-33.0); MEAN CORPUSCULAR HGB CONC 32.3 g/dL (32.0-36.0); MEAN CORPUSCULAR VOLUME 104.4 fL (79-99); MONOCYTES # (AUTO) 0.7 K/uL (0.1-1.0); MONOCYTES % (AUTO) 8.7 % (3.0-13.0); NEUTROPHILS # (AUTO) 4.6 K/uL (1.8-7.7); NEUTROPHILS % (AUTO) 58.2 % (40.0-77.0); PLATELET COUNT (AUTO) 149 K/uL (130-400); RED BLOOD CELL COUNT(AUTO) 3.88 MIL/uL (4.50-6.20); RED CELL DISTRIBUTION WIDTH 14.2 % (11.0-15.5); WHITE BLOOD COUNT (AUTO) 7.9 K/uL (4.8-10.8)
[2024-12-03 14:26] LABS: CREATININE 6.4 mg/dL (0.5-1.3); POTASSIUM 3.9 mmol/L (3.5-5.1)
[2024-12-03] MEDS ORDERED: SULF1TAB42 PO (15:14)
[2024-12-03] MEDS ORDERED: CEPH500B PO (15:14)
--- NOTE | 2024-12-03 15:14 | ERN ---
General Chief Complaint: Toe Pain/Injury Stated Complaint: BLADDER INFECTION Time Seen by MD: 13:11 Source: patient History of Present Illness Initial Comments Patient is a 74-year-old male coming in to be evaluated for right foot discomfort. Patient states that he has had lesion in his right toe which was being cleaned by his PCP he was using antibiotics. He states he started washing it and getting it wet noticed the right great toe getting increased red. Allergies: Coded Allergies: No Known Drug Allergies (Unverified Allergy, Unknown, 01/03/19) Home Meds Active Scripts Cephalexin Monohydrate (Keflex) 500 Mg Cap, 1 CAP PO TID for 7 Days, #30 CAP 0 Refills Prov:LIA GUERRA 11/18/24 Reported Medications Amlodipine Besylate (Amlodipine Besylate) 5 Mg Tablet, 5 MG PO DAILY, TAB 10/17/24 Sevelamer Carbonate (Renvela Pwdr) 0.8 Gram Powder, 800 MG PO TID, APPL 10/17/24 Insulin Aspart (Novolog) 100 Unit/Ml Inj, SQ CONTINUOUS, ML 10/17/24 [place]-3 Fatty Acids/Fish Oil (Fish Oil 1000 mg/Cap) 300 Mg-1,000 Mg Capsule, 1000 MG PO BID, CAP 05/23/24 Calcium Carbonate (Calcium) 600 Mg Calcium (1500 Mg) Tablet, 600 MG PO BID, TAB 12/01/23 Cholecalciferol (Vitamin D3) (Vitamin D3) 25 Mcg (1000 Unit) Capsule, 25 MCG PO AM, CAP 11/27/23 Metoprolol Tartrate (Metoprolol Tartrate) 50 Mg Tablet, 50 MG PO HS, TAB 11/27/23 Atorvastatin Calcium (Atorvastatin Calcium) 10 Mg Tablet, 5 MG PO HS, TAB 11/27/23 Aspirin (Aspir 81) 81 Mg Tablet.dr, 81 MG PO HS, TAB 01/03/19 Ferrous Sulfate (Ferrous Sulfate) 325 Mg (65 Mg Iron) Ectab, 325 MG PO TUES,THURS,SAT, TAB.EC 01/03/19 Past Medical History Past Medical History: Diabetes-Type II, Heart Disease, Hypertension, [place], Renal Failure Past Surgical History: CABG Surgical History Other: PORT-A-CATH ROS Dictation CONSTITUTIONAL: No chills, no fever, no weakness, no diaphoresis, no malaise. HEAD/FACE: No signs of trauma. EENT: No eye pain, no blurred vision, no tearing, no double vision, no ear pain, no ear discharge, no nose pain, no nasal congestion, no throat pain, no throat swelling, no mouth pain. RESPIRATORY: No cough, no orthopnea, no SOB, no stridor, no wheezing. CARDIOVASCULAR: No chest pain, no edema, no palpitations, no syncope. GASTROINTESTINAL/ABDOMINAL: No abdominal pain, no constipation, no diarrhea, no nausea, no vomiting. GENITOURINARY: No abnormal discharge, no dysuria, no frequent urination, no hematuria. No complaints of pain in the genitals. MUSCULOSKELETAL: No back pain, no gout, no joint pain, no joint swelling, no muscle pain, no muscle stiffness, no neck pain. INTEGUMENTARY: No change in color, no change in hair/nails, no dryness, no lesion, no lumps, no rash. NEUROLOGICAL/PSYCH: No anxiety, not depressed, no emotional problem, no headache, no numbness, no pre-existing deficit, no history of seizures, no tremors, no weakness. HEMATOLOGIC/LYMPHATIC: Not anemic, no history of blood clots, no apparent bleeding, no bruising, glands not swollen. All Systems Negative, Except as Noted. Physical Exam Physical Exam Dictation VITAL SIGNS: Reviewed. GENERAL APPEARANCE: Alert, oriented x3, no acute distress, obese. HEAD AND FACE: Non-traumatic. EYES: PERRL, pink conjunctivas, eyelid no trauma, anterior chamber clear. EARS: Pinnas intact and no signs of trauma or erythema. Ear canals clear and no discharge. TMs no erythema. NOSE: No discharge, no bleeding. OROPHARYNX: Mouth normal, teeth no caries, tongue pink. Pharynx clear, no erythema. Tonsils no exudates, no abscesses noted. Mucous membrane moist. NECK: Supple, non-tender, no thyromegaly, no masses, no JVD, no bruits. BREAST: Deferred. CHEST: No tenderness, no crepitus, no paradoxical movement, no retractions. LUNGS: Clear, well-ventilated, symmetric, no rales, no wheezing, no rhonchi, no stridor, good breath sounds bilaterally. HEART: Regular rate, regular rhythm, no murmur, no gallops. VASCULAR: No peripheral edema. ABDOMEN: Soft, positive bowel sounds, nondistended, no guarding, nontender, no rebound, no masses no hepatomegaly, no splenomegaly, no Salcedo's sign, no he rnias. RECTAL: Deferred. GENITAL: Deferred. NEUROLOGICAL: Normal speech, gross motor function intact, gross sensory functio n intact. MUSCULOSKELETAL: Neck nontender, full range of motion, back nontender, full range of motion. EXTREMITIES: Nontender, full range of motion. SKIN: Color pink, dry, no turgor, no rash, no lacerations, right foot great toe abrasions in the distal area LYMPHATICS: Deferred. Results Laboratory and Microbiology Lab and Micro Result Laboratory Tests Test 12/03/24 13:57 White Blood Count 7.9 K/uL (4.8-10.8) Red Blood Count 3.88 MIL/uL (4.50-6.20) L Hemoglobin 13.1 g/dL (14.0-18.0) L Hematocrit 40.5 % (42-54) L Mean Corpuscular Volume 104.4 fL (79-99) H Mean Corpuscular Hemoglobin 33.8 pg (27.0-33.0) H Mean Corpuscular Hemoglobin Concent 32.3 g/dL (32.0-36.0) Red Cell Distribution Width 14.2 % (11.0-15.5) Platelet Count 149 K/uL (130-400) Mean Platelet Volume 10.3 fL (7.5-10.5) Immature Granulocyte % (Auto) 0.3 % (0-1) Neutrophils (%) (Auto) 58.2 % (40.0-77.0) Lymphocytes (%) (Auto) 29.0 % (21.0-51.0) Monocytes (%) (Auto) 8.7 % (3.0-13.0) Eosinophils (%) (Auto) 3.0 % (0.0-8.0) Basophils (%) (Auto) 0.8 % (0.0-5.0) Neutrophils # (Auto) 4.6 K/uL (1.8-7.7) Lymphocytes # (Auto) 2.3 K/uL (1.0-4.8) Monocytes # (Auto) 0.7 K/uL (0.1-1.0) Eosinophils # (Auto) 0.24 K/uL (0.00-0.70) Basophils # (Auto) 0.06 K/uL (0.00-0.20) Absolute Immature Granulocyte (auto 0.02 K/uL (0-1) Nucleated Red Blood Cells 0.0 % (0.0-0.19) Sodium Level 138 mmol/L (136-145) Potassium Level 3.9 mmol/L (3.5-5.1) Chloride Level 100 mmol/L (101-111) L Carbon Dioxide Level 29 mmol/L (21-32) Blood Urea Nitrogen 46 mg/dL (7-18) H Creatinine 6.4 mg/dL (0.5-1.3) H Glomerular Filtration Rate Calc 8 mL/min (>90) Random Glucose 93 mg/dL (70-105) Total Calcium 8.0 mg/dL (8.5-10.1) L Labs Reviewed?: Yes MDM MDM: Differential diagnosis: Cellulitis, sepsis, Patient is a 74-year-old male coming in to be evaluated for right great toe pain. Patient was diagnosed with a cellulitis secondary to abrasions found on it. Patient states he started washing it and exposing it to more water. I did consult him and advised him to keep the toes dry antibiotics will be provided I also advised him close monitoring with the PCP as white blood cell count is normal and the erythema improved significantly with off weight-bearing. Patient will be discharged with right great toe cellulitis. ED Course Orders Procedure Category Date Status Time Cbc With Differential LAB 12/03/24 Complete 13:21 Basic Metabolic Panel LAB 12/03/24 Complete 13:21 Blood Cult ANG 12/03/24 In Process 13:21 Ceftriaxone 1g Vial PHA 12/03/24 Transmitted (Rocephine 1g Inj) 15:30 Vital Signs Date Time Temp Pulse Resp B/P (MAP) Pulse Ox O2 Delivery O2 Flow Rate FiO2 12/03/24 14:17 98.1 60 16 160/48 98 Room Air* 0 21 12/03/24 13:10 97.9 59 16 160/43 99 Room Air* 0 21 12/03/24 13:10 97.9 59 16 160/43 99 Room Air 0 DX & DISP Disposition: Discharge Departure Impression: Primary Impression: Cellulitis of great toe, right Additional Impression: End stage renal disease Condition: Stable Scripts Cephalexin Monohydrate (Keflex) 500 Mg Cap 1 CAP PO TID for 10 Days, #30 CAP 0 Refills Prov: CRISTHIAN ZALDIVAR MD 12/03/24 Sulfamethoxazole/Trimethoprim (Bactrim Ds Tablet) 800 Mg-160 Mg Tablet 1 TAB PO BID for 10 Days, #20 TAB 0 Refills Prov: CRISTHIAN ZALDIVAR MD 12/03/24 Additional Instructions: FOLLOW-UP WITH PRIMARY CARE PROVIDER IN 1 TO 2 DAYS. TAKE MEDICATIONS DIRECTED HERE IN THE EMERGENCY ROOM. OKAY TO CONTINUE HOME MEDICATIONS UNLESS OTHERWISE DISCUSSED DURING YOUR VISIT IN THE EMERGENCY ROOM TODAY. RETURN TO YOUR NEAREST EMERGENCY ROOM IF SYMPTOMS WORSEN OR IF THERE IS NO IMPROVEMENT. CALL 911 IF YOU NEED IMMEDIATE ASSISTANCE. TAKE TYLENOL [id number] NEEDED AND IF NO CONTRAINDICATIONS ARE PRESENT. INCREASE ORAL HYDRATION. A WOUND CULTURE OR URINE CULTURE WAS ORDERED HERE IN THE EMERGENCY ROOM DEPARTMENT PLEASE FOLLOW-UP WITH PRIMARY CARE PROVIDER AND ADVISE THEM TO GET REPEAT PORTS FROM OUR FACILITY. IF YOU HAD ANY LIDA WRAP/SPLINTS THAT WERE APPLIED HERE, PLEASE DO NOT REMOVE THEM UNTIL YOU SEE YOUR PRIMARY CARE OR SPECIALTY. Referrals: Referrals: HUSSEIN ROBLERO MD (PCP) Time of Disposition: 15:13 CRISTHIAN ZALDIVAR MD Dec 03, 2024 15:14
[2024-12-03] MEDS: cefTRIAXone 1G VIAL IVPB ONE (15:38)
[2024-12-03 15:45] VITALS: BP 158/56; PULSE 66; RESP 16; TEMP 98.3; O2SAT 98
== END 2024-12-03 15:56 | disposition home or self-care (01) ==
LOC: EDH 13:10
DX: L03.031 Cellulitis of right toe (principal); I12.0 Hypertensive chronic kidney disease with stage 5 chronic kidney disease or end stage renal disease; E11.22 Type 2 diabetes mellitus with diabetic chronic kidney disease; N18.6 End stage renal disease; Z79.82 Long term (current) use of aspirin; Z95.1 Presence of aortocoronary bypass graft
CPT/HCPCS: 99283; 96374; 80048; 85025; 87040 ×2; 36415; J0696

== ENCOUNTER 2025-02-13 13:35 | Emergency (ER) | payer OTHER, MEDICARE ==
[~2025-02-13] VITALS: Ht 172.7 cm; Wt 77.1 kg
[~2025-02-13 13:35] MED LIST changes: -AMLO-257 PO; +AMLO-258 PO; -CEPH500B PO; -SEVE800PW PO; +SEVE800T27 PO
--- NOTE | 2025-02-13 15:27 | HMCIMG ---
Exam Type: US VENOUS DOPPLER UNILATERAL Clinical Information: LEFT UPPER Comparison: None Findings: The examination shows normal deep venous system. There is normal compressibility at all levels. There is no intraluminal clot. There is no occlusion. Adequate response is obtained on augmentation. Patent brachial artery to cephalic vein AV fistula seen. Impression: No evidence of DVT.
--- NOTE | 2025-02-13 15:27 | HMCIMG ---
Exam Type: US ARTERIAL UNILA UPP EXT DUPL Clinical Information: LEFT UPPER Comparison: None Findings and impression: There is a brachial artery to cephalic vein patent AV fistula. There is no hematoma or pseudoaneurysm. There is no occlusion or thrombosis.
[2025-02-13 15:42] VITALS: BP 114/48; PULSE 59; RESP 16; TEMP 97.8; O2SAT 94
--- NOTE | 2025-02-13 15:46 | ERN ---
General Chief Complaint: Arm Swelling/Redness Stated Complaint: LEFT ARM BRUISING FROM FISTULA/POSSIBLE CLOT Time Seen by MD: 13:36 Source: patient History of Present Illness Initial Comments PATIENT IS A 74-YEAR-OLD MALE COMING IN TO BE EVALUATED FOR LEFT ARM SWELLING AND ECCHYMOSIS. PATIENT WAS SENT OVER BY HIS PCP TO RULE OUT AN UPPER EXTREMITY CLOT. PATIENT DOES HAVE A LAVA IN PLACE AND HAS BEEN GETTING DIALYZED. Allergies: Coded Allergies: No Known Drug Allergies (Unverified Allergy, Unknown, 01/03/19) Home Meds Active Scripts Amlodipine Besylate (Amlodipine Besylate) 10 Mg Tablet, 1 TAB PO DAILY for 30 Days, #30 TAB 0 Refills Prov:SANTIAGO CARL MD 01/09/25 Reported Medications Sevelamer HCl (Sevelamer HCl) 800 Mg Tablet, 1600 MG PO BID, TAB 12/21/24 Insulin Aspart (Novolog) 100 Unit/Ml Inj, SQ CONTINUOUS, ML 10/17/24 [place]-3 Fatty Acids/Fish Oil (Fish Oil 1000 mg/Cap) 300 Mg-1,000 Mg Capsule, 1000 MG PO BID, CAP 05/23/24 Calcium Carbonate (Calcium) 600 Mg Calcium (1500 Mg) Tablet, 600 MG PO BID, TAB 12/01/23 Cholecalciferol (Vitamin D3) (Vitamin D3) 25 Mcg (1000 Unit) Capsule, 25 MCG PO AM, CAP 11/27/23 Metoprolol Tartrate (Metoprolol Tartrate) 50 Mg Tablet, 50 MG PO HS, TAB 11/27/23 Atorvastatin Calcium (Atorvastatin Calcium) 10 Mg Tablet, 5 MG PO HS, TAB 11/27/23 Aspirin (Aspir 81) 81 Mg Tablet.dr, 81 MG PO HS, TAB 01/03/19 Ferrous Sulfate (Ferrous Sulfate) 325 Mg (65 Mg Iron) Ectab, 325 MG PO TUES,THURS,SAT, TAB.EC 01/03/19 Past Medical History Past Medical History: CAD, Diabetes-Type II, High Cholesterol, Hypertension, Renal Disese, Renal Failure, UTI Past Surgical History: Other, LAVA Surgical History Other: RSC PERMCATH, ROS Dictation CONSTITUTIONAL: NO CHILLS, NO FEVER, NO WEAKNESS, NO DIAPHORESIS, NO MALAISE. HEAD/FACE: NO SIGNS OF TRAUMA. EENT: NO EYE PAIN, NO BLURRED VISION, NO TEARING, NO DOUBLE VISION, NO EAR PAIN, NO EAR DISCHARGE, NO NOSE PAIN, NO NASAL CONGESTION, NO THROAT PAIN, NO THROAT SWELLING, NO MOUTH PAIN. RESPIRATORY: NO COUGH, NO ORTHOPNEA, NO SOB, NO STRIDOR, NO WHEEZING. CARDIOVASCULAR: NO CHEST PAIN, NO EDEMA, NO PALPITATIONS, NO SYNCOPE. GASTROINTESTINAL/ABDOMINAL: NO ABDOMINAL PAIN, NO CONSTIPATION, NO DIARRHEA, NO NAUSEA, NO VOMITING. GENITOURINARY: NO ABNORMAL DISCHARGE, NO DYSURIA, NO FREQUENT URINATION, NO HEMATURIA. NO COMPLAINTS OF PAIN IN THE GENITALS. MUSCULOSKELETAL: NO BACK PAIN, NO GOUT, NO JOINT PAIN, NO JOINT SWELLING, NO MUSCLE PAIN, NO MUSCLE STIFFNESS, NO NECK PAIN. INTEGUMENTARY: NO CHANGE IN COLOR, NO CHANGE IN HAIR/NAILS, NO DRYNESS, NO LESION, NO LUMPS, NO RASH. NEUROLOGICAL/PSYCH: NO ANXIETY, NOT DEPRESSED, NO EMOTIONAL PROBLEM, NO HEADACHE, NO NUMBNESS, NO PRE-EXISTING DEFICIT, NO HISTORY OF SEIZURES, NO TREMORS, NO WEAKNESS. HEMATOLOGIC/LYMPHATIC: NOT ANEMIC, NO HISTORY OF BLOOD CLOTS, NO APPARENT BLEEDING, NO BRUISING, GLANDS NOT SWOLLEN. ALL SYSTEMS NEGATIVE, EXCEPT NOTED. Physical Exam Physical Exam Dictation VITAL SIGNS: REVIEWED. GENERAL APPEARANCE: ALERT, ORIENTED X3, NO ACUTE DISTRESS, OBESE. HEAD AND FACE: NON-TRAUMATIC. EYES: PERRL, PINK CONJUNCTIVAS, EYELID NO TRAUMA, ANTERIOR CHAMBER CLEAR. EARS: PINNAS INTACT AND NO SIGNS OF TRAUMA OR ERYTHEMA. EAR CANALS CLEAR AND NO DISCHARGE. TMS NO ERYTHEMA. NOSE: NO DISCHARGE, NO BLEEDING. OROPHARYNX: MOUTH NORMAL, TEETH NO CARIES, TONGUE PINK. PHARYNX CLEAR, NO ERYTHEMA. TONSILS NO EXUDATES, NO ABSCESSES NOTED. MUCOUS MEMBRANE MOIST. NECK: SUPPLE, NON-TENDER, NO THYROMEGALY, NO MASSES, NO JVD, NO BRUITS. BREAST: DEFERRED. CHEST: NO TENDERNESS, NO CREPITUS, NO PARADOXICAL MOVEMENT, NO RETRACTIONS. LUNGS: CLEAR, WELL-VENTILATED, SYMMETRIC, NO RALES, NO WHEEZING, NO RHONCHI, NO STRIDOR, GOOD BREATH SOUNDS BILATERALLY. HEART: REGULAR RATE, REGULAR RHYTHM, NO MURMUR, NO GALLOPS. VASCULAR: NO PERIPHERAL EDEMA. ABDOMEN: SOFT, POSITIVE BOWEL SOUNDS, NONDISTENDED, NO GUARDING, NONTENDER, NO REBOUND, NO MASSES NO HEPATOMEGALY, NO SPLENOMEGALY, NO LOUISE'S SIGN, NO HERNIAS. RECTAL: DEFERRED. GENITAL: DEFERRED. NEUROLOGICAL: NORMAL SPEECH, GROSS MOTOR FUNCTION INTACT, GROSS SENSORY FUNCTION INTACT. MUSCULOSKELETAL: NECK NONTENDER, FULL RANGE OF MOTION, BACK NONTENDER, FULL RANGE OF MOTION. EXTREMITIES: NONTENDER, FULL RANGE OF MOTION. LEFT EXTREMITY CONGESTION SWELLING, LAVA W THRILL SKIN: COLOR PINK, DRY, NO TURGOR, NO RASH, NO LACERATIONS, NO ABRASIONS, NO CONTUSIONS. LYMPHATICS: DEFERRED. MDM MDM: DIFFERENTIAL DIAGNOSIS: LEFT UPPER EXTREMITY SWELLING, DVT, RATIONALE: TESTS CONSIDERED AND ORDERED SECONDARY TO SHARED DECISION MAKING INCLUDE: PREVIOUS OUTSIDE RECORDS REVIEWED: OLD ER VISITS. RISK OF COMPLICATION AND/OR MORBIDITY OR MORTALITY OF PATIENT MANAGEMENT: NONE MEDICATIONS-PER MEDICATION RECONCILIATION PATIENT IS A 74-YEAR-OLD MALE COMING IN TO BE EVALUATED FOR LEFT UPPER EXTREMITY SWELLING. ULTRASOUND BOTH OF HER ARTERY AND VENOUS DID NOT DISCLOSE ACUTE FINDINGS. PATIENT WILL BE DISCHARGED IN STABLE CONDITION. ED Course Orders Procedure Category Date Status Time Us Arterial Unila Upp US 02/13/25 Resulted Ext Dupl 14:19 Us Venous Doppler US 02/13/25 Resulted Unilateral 14:19 Vital Signs Date Time Temp Pulse Resp B/P (MAP) Pulse Ox O2 Delivery O2 Flow Rate FiO2 02/13/25 14:09 98.1 61 16 102/38 95 Room Air 0 DX & DISP Disposition: Discharge Departure Impression: Primary Impression: Left upper extremity swelling Condition: Stable Additional Instructions: FOLLOW-UP WITH PRIMARY CARE PROVIDER IN 1 TO 2 DAYS. TAKE MEDICATIONS DIRECTED HERE IN THE EMERGENCY ROOM. OKAY TO CONTINUE HOME MEDICATIONS UNLESS OTHERWISE DISCUSSED DURING YOUR VISIT IN THE EMERGENCY ROOM TODAY. RETURN TO YOUR NEAREST EMERGENCY ROOM IF SYMPTOMS WORSEN OR IF THERE IS NO IMPROVEMENT. CALL 911 IF YOU NEED IMMEDIATE ASSISTANCE. TAKE TYLENOL [id number] NEEDED AND IF NO CONTRAINDICATIONS ARE PRESENT. INCREASE ORAL HYDRATION. A WOUND CULTURE OR URINE CULTURE WAS ORDERED HERE IN THE EMERGENCY ROOM DEPARTMENT PLEASE FOLLOW-UP WITH PRIMARY CARE PROVIDER AND ADVISE THEM TO GET REPEAT PORTS FROM OUR FACILITY. IF YOU HAD ANY LIDA WRAP/SPLINTS THAT WERE APPLIED HERE, PLEASE DO NOT REMOVE THEM UNTIL YOU SEE YOUR PRIMARY CARE OR SPECIALTY. REFERRALS: Referrals: SELF,REFERRAL (PCP) MICHAEL JACOBS MD Time of Disposition: 15:45 CRISTHIAN ZALDIVAR MD February 13, 2025 15:46
== END 2025-02-13 15:59 | disposition home or self-care (01) ==
LOC: EDH 13:35
DX: M79.89 Other specified soft tissue disorders (principal); E11.9 Type 2 diabetes mellitus without complications; E78.00 Pure hypercholesterolemia, unspecified; M79.662 Pain in left lower leg; I10 Essential (primary) hypertension; I25.10 Atherosclerotic heart disease of native coronary artery without angina pectoris; Z79.82 Long term (current) use of aspirin
CPT/HCPCS: 93931; 93971; 99284

== ENCOUNTER 2025-03-03 16:41 | Inpatient (IN) | payer MEDICARE, OTHER ==
[~2025-03-03] VITALS: Ht 175.3 cm; Wt 77.6 kg
[2025-03-03 17:05] LABS: BASOPHILS # (AUTO) 0.02 K/uL (0.00-0.20); BASOPHILS % (AUTO) 0.8 % (0.0-5.0); EOSINOPHILS # (AUTO) 0.09 K/uL (0.00-0.70); EOSINOPHILS % (AUTO) 3.7 % (0.0-8.0); HEMATOCRIT 32.7 % (42-54); IMMATURE GRANULOCYTE ABSOLUTE 0.01 K/uL (0-1); LYMPHOCYTES % (AUTO) 41.9 % (21.0-51.0); MEAN CORPUSCULAR HEMOGLOBIN 32.4 pg (27.0-33.0); MEAN CORPUSCULAR HGB CONC 31.2 g/dL (32.0-36.0); MEAN CORPUSCULAR VOLUME 103.8 fL (79-99); MONOCYTES # (AUTO) 0.3 K/uL (0.1-1.0); MONOCYTES % (AUTO) 11.4 % (3.0-13.0); NEUTROPHILS % (AUTO) 41.8 % (40.0-77.0); PLATELET COUNT (AUTO) 120 K/uL (130-400); RED BLOOD CELL COUNT(AUTO) 3.15 MIL/uL (4.50-6.20); RED CELL DISTRIBUTION WIDTH 15.5 % (11.0-15.5); WHITE BLOOD COUNT (AUTO) 2.5 K/uL (4.8-10.8)
[2025-03-03 17:16] LABS: CREATININE 4.2 mg/dL (0.5-1.3); POTASSIUM 4.4 mmol/L (3.5-5.1)
[2025-03-03 17:24] LABS: B-TYPE NATRIURETIC PEPTIDE 1200 pg/mL (0-100)
--- NOTE | 2025-03-03 17:35 | NUR ---
PT JUST PLACED IN MY ED BED 13
[2025-03-03 18:15] LABS: BAND NEUTROPHILS % (MANUAL) 10 % (0-2); EOSINOPHILS % (MANUAL) 2 % (1-6); LYMPHOCYTES % (MANUAL) 35 % (22-44); MAN.DIFF COMMENT-IMPRESSION MANUAL DIFFERENTIAL; MONOCYTES % (MANUAL) 4 % (2-9); PLATELET MORPHOLOGY COMMENT LARGE PLTS PRESENT; REACTIVE LYMPHOCYTES 6 % (0-0); SEGMENTED NEUTROPHILS % 43 % (40-70); TOTAL CELLS COUNTED 100
--- NOTE | 2025-03-03 18:55 | NUR ---
REPORT ENDORSED TO KASI HASTINGS
[2025-03-03 19:36] LABS: INFLUENZA TYPE A Negative For Type A (NEGATIVE); INFLUENZA TYPE B Negative For Type B (NEGATIVE)
[2025-03-03 19:43] LABS: COVID19 (SARS ANTIGEN RAPID) PRESUMPTIVE NEGATIVE (NEGATIVE)
[2025-03-03 19:44] LABS: APPEARANCE,URINE CLEAR (CLEAR); BILIRUBIN,URINE NEGATIVE (NEGATIVE); COLOR,URINE LIGHT-YELLOW (YELLOW); GLUCOSE, URINE (UA) 500 mg/dL (NEGATIVE); KETONES,URINE NEGATIVE (NEGATIVE); LEUKOCYTE ESTERASE ,URINE NEGATIVE Leu/uL (NEGATIVE); NITRATE,URINE NEGATIVE (NEGATIVE); OCCULT BLOOD,URINE NEGATIVE (NEGATIVE); PROTEIN,URINE 100 mg/dL (NEGATIVE); UROBILINOGEN,URINE 0.2 mg/dL (0.2-1.0)
[2025-03-03 19:45] LABS: ADD UA MICROSCOPIC YES; RBC,URINE 0-1 /HPF (0-1); SQUAMOUS EPITHELIAL CELL,UR RARE /HPF (0-2); WBC,URINE 0-1 /HPF (0-1)
--- NOTE | 2025-03-03 20:04 | ERN ---
General Chief Complaint: Chest Pain Stated Complaint: CHEST PAIN Time Seen by MD: 17:03 Time Seen by Midlevel: 17:03 Source: patient History of Present Illness Initial Comments 74-year-old male who presents to the emergency department due to chest pain onset yesterday. Patient reports bilateral arm tingling but denies any shortness of breath, headache, vision change, abdominal pain, fever or further associated symptoms. Patient takes daily baby aspirin 81 mg, prior to arrival gave the patient an additional 162mg of aspirin. Patient denies any current chest pain. PMHx DM, HTN, CABG x5, CAD, renal failure. Patient next dialysis tomorrow. Allergies: Coded Allergies: No Known Drug Allergies (Unverified Allergy, Unknown, 01/03/19) Home Meds Active Scripts Amlodipine Besylate (Amlodipine Besylate) 10 Mg Tablet, 1 TAB PO DAILY for 30 Days, #30 TAB 0 Refills Prov:SANTIAGO CARL MD 01/09/25 Reported Medications Isosorbide Mononitrate (Isosorbide Mononitrate) 20 Mg Tablet, 30 MG PO DAILY, TAB 03/03/25 Metoprolol Tartrate (Metoprolol Tartrate) 50 Mg Tablet, 1 TAB PO HS for 30 Days, #60 TAB 0 Refills 03/03/25 Amlodipine Besylate (Amlodipine Besylate) 5 Mg Tablet, 1 TAB PO DAILY for 30 Days, #30 TAB 0 Refills 03/03/25 Aspirin (Aspirin) 81 Mg Tablet, 81 MG PO HS, TAB 03/03/25 Cholecalciferol (Vitamin D3) (Vitamin D3) 25 Mcg (1000 Unit) Capsule, 25 MCG PO DAILY, CAP 03/03/25 Calcium Carbonate (Calcium) 600 Mg Calcium (1500 Mg) Tablet, 1 TAB PO BID for 30 Days, #60 TAB 0 Refills 03/03/25 Sevelamer Carbonate (Sevelamer Carbonate) 2.4 Gram Powd.pack, 800 MG PO TID 03/03/25 Cholecalciferol (Vitamin D3) 10 Mcg (400 Unit) Tablet, 25 MCG PO DAILY, TAB 03/03/25 Atorvastatin Calcium (Atorvastatin Calcium) 10 Mg Tablet, 5 MG PO HS, TAB 03/03/25 [place]-3/Dha/Epa/Fish Oil (Fish Oil 1,000 mg Softgel) 1,000 Mg (120 Mg-180 Mg) Capsule, 1000 MG PO BID, CAP 03/03/25 Ferrous Sulfate (Ferrous Sulfate) 325 Mg (65 Mg Iron) Ectab, 1 TAB PO DAILY for 30 Days, #30 TAB 0 Refills 03/03/25 Insulin Aspart (Novolog) 100 Unit/Ml Cartridge, 0 SQ CONTINOUS, CARTRIDGE 03/03/25 Sevelamer HCl (Sevelamer HCl) 800 Mg Tablet, 1600 MG PO BID, TAB 12/21/24 Insulin Aspart (Novolog) 100 Unit/Ml Inj, SQ CONTINUOUS, ML 10/17/24 [place]-3 Fatty Acids/Fish Oil (Fish Oil 1000 mg/Cap) 300 Mg-1,000 Mg Capsule, 1000 MG PO BID, CAP 05/23/24 Calcium Carbonate (Calcium) 600 Mg Calcium (1500 Mg) Tablet, 600 MG PO BID, TAB 12/01/23 Cholecalciferol (Vitamin D3) (Vitamin D3) 25 Mcg (1000 Unit) Capsule, 25 MCG PO AM, CAP 11/27/23 Metoprolol Tartrate (Metoprolol Tartrate) 50 Mg Tablet, 50 MG PO HS, TAB 11/27/23 Atorvastatin Calcium (Atorvastatin Calcium) 10 Mg Tablet, 5 MG PO HS, TAB 11/27/23 Aspirin (Aspir 81) 81 Mg Tablet.dr, 81 MG PO HS, TAB 01/03/19 Ferrous Sulfate (Ferrous Sulfate) 325 Mg (65 Mg Iron) Ectab, 325 MG PO TUES,THURS,SAT, TAB.EC 01/03/19 Past Medical History Past Medical History: CAD, Diabetes-Type II, High Cholesterol, Hypertension, Renal Disese, Renal Failure, UTI Past Surgical History: Other, LAVA Surgical History Other: C PERMCATH, ROS Dictation Constitutional: Negative for fever,chills, and weight loss Eyes: Negative for injury, pain,redness, and discharge ENT: Negative for injury,pain or swelling Cardiovascular: Positive for chest pain Negative for palpitations, and edema Respiratory: Negative for shortness of breath, cough, and wheezing, Abdomen/GI: Negative for abdominal pain, nausea, vomiting, diarrhea, and constipation Back: Negative for injury and pain : Negative for painful urination, bleeding or discharge MS/Extremity: Positive for bilateral upper extremity tingling. Negative for injury and deformity Skin: Negative for rash, and discoloration Neuro: Negative for headache, weakness, numbness, tingling, and seizure Psych: Negative for suicide ideation, homicidal ideation, and hallucinations Physical Exam Physical Exam Dictation General: awake, alert, no acute distress Head/Face: Normocephalic, atraumatic Eyes: PERRL, EOMI, normal conjunctiva ENT: oral cavity clear, oral mucosa moist Neck: Supple, normal range of motion Cardiovascular: RRR, normal S1/S2 Respiratory: CTAB, no respiratory distress, no rales or wheezes Abdomen: Soft, non-tender, non-distended, no guarding or rebound. Skin: Warm, dry, normal turgor, no rash MS/Extremity: Pulses equal, no cyanosis, neurovascular intact, FROM Neuro: COAx4, GCS 15, strength 5/5, CN 2-12 intact, normal cerebellar exam, normal gait Psych: Normal behavior, mood, and affect normal Results Laboratory and Microbiology Lab and Micro Result Laboratory Tests Test 03/03/25 16:57 03/03/25 19:05 03/03/25 19:36 White Blood Count 2.5 K/uL (4.8-10.8) L Red Blood Count 3.15 MIL/uL (4.50-6.20) L Hemoglobin 10.2 g/dL (14.0-18.0) L Hematocrit 32.7 % (42-54) L Mean Corpuscular Volume 103.8 fL (79-99) H Mean Corpuscular Hemoglobin 32.4 pg (27.0-33.0) Mean Corpuscular Hemoglobin Concent 31.2 g/dL (32.0-36.0) L Red Cell Distribution Width 15.5 % (11.0-15.5) Platelet Count 120 K/uL (130-400) L Mean Platelet Volume 10.6 fL (7.5-10.5) H Immature Granulocyte % (Auto) 0.4 % (0-1) Neutrophils (%) (Auto) 41.8 % (40.0-77.0) Lymphocytes (%) (Auto) 41.9 % (21.0-51.0) Monocytes (%) (Auto) 11.4 % (3.0-13.0) Eosinophils (%) (Auto) 3.7 % (0.0-8.0) Basophils (%) (Auto) 0.8 % (0.0-5.0) Neutrophils # (Auto) 1.0 K/uL (1.8-7.7) L Lymphocytes # (Auto) 1.0 K/uL (1.0-4.8) Monocytes # (Auto) 0.3 K/uL (0.1-1.0) Eosinophils # (Auto) 0.09 K/uL (0.00-0.70) Basophils # (Auto) 0.02 K/uL (0.00-0.20) Absolute Immature Granulocyte (auto 0.01 K/uL (0-1) Segmented Neutrophils % 43 % (40-70) Band Neutrophils % 10 % (0-2) H Lymphocytes % (Manual) 35 % (22-44) Monocytes % (Manual) 4 % (2-9) Eosinophils % (Manual) 2 % (1-6) Nucleated Red Blood Cells 0.0 % (0.0-0.19) Differential Comment MANUAL DIFFERENTIAL Reactive Lymphocytes 6 % (0-0) H White Cell Morphology Comment Platelet Morphology Comment LARGE PLTS PRESENT Red Blood Cell Morphology See comments Sodium Level 136 mmol/L (136-145) Potassium Level 4.4 mmol/L (3.5-5.1) Chloride Level 99 mmol/L (101-111) L Carbon Dioxide Level 28 mmol/L (21-32) Blood Urea Nitrogen 31 mg/dL (7-18) H Creatinine 4.2 mg/dL (0.5-1.3) H Glomerular Filtration Rate Calc 14 mL/min (>90) Random Glucose 205 mg/dL (70-105) H Total Calcium 8.1 mg/dL (8.5-10.1) L Total Creatine Kinase 60 U/L (21-232) # Troponin I High Sensitivity 51 ng/L (4-75) B-Type Natriuretic Peptide 1200 pg/mL (0-100) H Influenza Type A Antigen Negative For Type A Influenza Type B Antigen Negative For Type B SARS-CoV-2 Antigen (Rapid) PRESUMPTIVE NEGATIVE Urine Color LIGHT-YELLOW (YELLOW) Urine Appearance CLEAR (CLEAR) Urine pH 7.0 (5.0-8.0) Urine Specific [place] 1.010 (1.001-1.031) Urine Protein 100 mg/dL (NEGATIVE) H Urine Glucose (UA) 500 mg/dL (NEGATIVE) H Urine Ketones NEGATIVE mg/dL (NEGATIVE) Urine Occult Blood NEGATIVE (NEGATIVE) Urine Nitrate NEGATIVE (NEGATIVE) Urine Bilirubin NEGATIVE mg/dL (NEGATIVE) Urine Urobilinogen 0.2 mg/dL (0.2-1.0) Urine Leukocyte Esterase NEGATIVE Stephanie/uL Urine RBC 0-1 /HPF (0-1) Urine WBC 0-1 /HPF (0-1) Urine Squamous Epithelial Cells RARE /HPF (0-2) Urine Bacteria None /HPF (None Seen) Labs Reviewed?: Yes EKG/XRAY/US/CT/MRI EKG Comment Date: 03/03/25 Time: 1637 Rate: 70 EKG interpretation: Sinus rhythm, probable left atrial enlargement, no STEMI Reviewed by ED Attending MDM MDM: Differential diagnosis: [place], ACS, angina Rationale: 74-year-old male who presents to the emergency department due to chest pain onset yesterday. Patient reports bilateral arm tingling but denies any shortness of breath, headache, vision change, abdominal pain, fever or further associated symptoms. Patient takes daily baby aspirin 81 mg, prior to arrival gave the patient an additional 162mg of aspirin. Patient denies any current chest pain. PMHx DM, HTN, CABG x5, CAD, renal failure. Patient next dialysis tomorrow. Per physical examination patient is in no acute distress, nonlabored breathing, abdomen is soft nontender, no neurological deficits, bilateral upper extremity strength and sensation. Labs obtained indicate decreased WBCs of 2.5, anemia with hemoglobin of 10.2, BUN 31 creatinine 4.2 consistent with end-stage renal disease, potassium within normal limits, BNP 1200, initial troponin 51 repeat tr oponin 49. Serology COVID and influenza negative. UA negative for urinary tract infection. On re-examination patient continues to be without any chest pain. Findings, diagnosis, decision for admission was discussed with patient and . Patient and verbalized understanding and agreed with admission. 40 mg of Lasix was administered in the ED. Case discussed with hospitalist who accepted admission. Previous outside records reviewed: Old ER visits. Risk of complication and/or morbidity or mortality of patient management: None Medications-Per medication reconciliation Need for hospitalization: Patient does meet criteria for hospitalization. Need for emergency major/minor surgery: No There are no social concerns with this patient. Prescription drug management Prescriptions will include symptomatic care Patient's prior external medical records from other ER visits were reviewed by me as indicated. Prior testing and results from previous visits were reviewed. Prior tests were taken into account with medical decision making and resource utilization, independent historian/historians were used to obtain complete medical history. I independently interpreted the test that were performed, results were reviewed by me and considered findings on radiology if ordered. Medical management and examination interpretation discussions were had by me with other qualified healthcare professionals as indicated for the patient's care. ED Course Orders Procedure Category Date Status Time Vital Signs Per CPOE 03/03/25 Transmitted Routine 16:42 B-Type Natriuretic LAB 03/03/25 Complete Peptide 16:42 Chest 1vw RAD 03/03/25 Taken 16:42 12 Lead Ekg Tracing- EKG 03/03/25 Logged Technical 16:42 Oxygen By Nc/Pulse Ox CPOE 03/03/25 Transmitted 16:42 Maintain Iv CPOE 03/03/25 Transmitted 16:42 Iv Insertion CPOE 03/03/25 Transmitted 16:42 Cardiac Monitoring CPOE 03/03/25 Transmitted 16:42 Pulse Oximetry With CPOE 03/03/25 Transmitted Vs And Prn 16:42 Cbc With Differential LAB 03/03/25 Complete 16:42 Activity: Br W/Brp CPOE 03/03/25 Transmitted With Assist 16:42 Creatine Kinase, Total LAB 03/03/25 Complete 16:42 Troponin I High LAB 03/03/25 Complete Sensitivity 16:42 Urinalysis Profile LAB 03/03/25 Complete 16:42 Basic Metabolic Panel LAB 03/03/25 Complete 16:42 Manual Differential LAB 03/03/25 Complete 16:57 Covid19 (Sars Antigen LAB 03/03/25 Complete Rapid) 18:06 Influenza Type A & B, LAB 03/03/25 Complete Rapid 18:06 Furosemide 40mg Vial PHA 03/03/25 Complete (Lasix 40mg Vial) 21:00 Current Medications Medications (Trade) Dose Ordered Sig/[place] Route PRN Reason Start Time Stop Time Status Last Admin Dose Admin Furosemide (LASix 40MG VIAL) 40 mg ONCE ONCE IV 03/03/25 21:00 03/03/25 21:01 DC 03/03/25 20:58 Vital Signs Date Time Temp Pulse Resp B/P (MAP) Pulse Ox O2 Delivery O2 Flow Rate FiO2 03/03/25 21:19 71 14 164/58 Room Air* 0 21 03/03/25 19:59 66 12 153/54 Room Air* 0 21 03/03/25 18:02 64 10 165/56 Room Air* 0 03/03/25 16:42 99.0 66 16 148/54 97 Room Air 0 DX & DISP Disposition: Inpatient Decision to Admit Date: Mar 03, 2025 Departure Impression: Primary Impression: Elevated brain natriuretic peptide (BNP) level Additional Impression: Chest pain Condition: Stable Referrals: SELF,REFERRAL (PCP) I performed the substantive portion of the visit. I have reviewed and personally made and approve the management plan that is documented in the notes by myself or the DIANE. I acknowledge full responsibility for the patient's management plan. CODY SIEGEL Mar 03, 2025 20:04
[2025-03-03] MEDS: furoSEMIDE 40MG VIAL IV ONE (20:58)
[2025-03-03] MEDS ORDERED: INSU100C6 SQ (22:17)
[2025-03-03] MEDS ORDERED: ASPI-1719 PO (22:17)
[2025-03-03] MEDS ORDERED: FERS325 PO (22:17)
[2025-03-03] MEDS ORDERED: ATOR10TA69 PO (22:17)
[2025-03-03] MEDS ORDERED: AMLO-257 PO (22:17)
[2025-03-03] MEDS ORDERED: METO50TA18 PO (22:17)
[2025-03-03] MEDS ORDERED: CHOL100046 PO (22:17)
[2025-03-03] MEDS ORDERED: ISOS-58 PO (22:17)
[2025-03-03] MEDS ORDERED: CALC-1125 PO (22:17)
[2025-03-03] MEDS ORDERED: SEVE2.4P3 PO (22:17)
[2025-03-03] MEDS ORDERED: OMEG100033 PO (22:17)
[2025-03-03] MEDS ORDERED: VITAD400 PO (22:17)
--- NOTE | 2025-03-03 22:53 | HP ---
[facility] HISTORY AND PHYSICAL Date of Service: Mar 03, 2025 Time of Service: 22:53 PCP: Self Referral HISTORY OF PRESENT ILLNESS: This is a 74-year-old male with past medical history of diabetes, hypertension, end-stage renal disease on hemodialysis and coronary artery disease with CABG x5 who presents to the ED for complaints of chest pain which started yesterday associated with bilateral arm tingling pain following his hemodialysis treatment and initially patient thought it was because of his hemodialysis treatment however chest pain persist and patient took aspirin 2 tabs and chest pain has subsided.Upon ER arrival EKG was done and result revealed sinus rhythm heart rate 70 with probable left atrial enlargement.Patient reports his wardrobe coordinator is Dr. Kauffman . Patient's spiral runner is Dr. Yepez.Patient reports he has an insulin pump. Seen and examined patient in the ER awake alert and coherent. Patient denies chest pain, palpitation, cough and shortness of breaths. Vital signs temperature 99, heart rate 68, blood pressure 156/53, saturation 99% on room air. Labs WBC 2.5, hemoglobin 10, hematocrit 32, platelet count 120. Chloride 99, CO2 28, BUN 31, creatinine 4.2, GFR 14, glucose 205 total calcium 8.1, BNP 1200 troponin 51 to 49 influenza type a and B negative SARs COVID negative. Chest x-ray result is still pending at this time. While in the ER patient received Lasix 40 mg IV. We will admit patient for further medical management. REVIEW OF SYSTEMS CONSTITUTIONAL: Denies fevers, chills, or night sweats. No unintentional weight loss reported. NEUROLOGICAL: Denies headache, amaurosis fugax, motor weakness, sensory deficit, vertigo/spinning sensation, gait abnormalities, or tremors. ENT: No hearing loss, otalgia, otorrhea, rhinitis, rhinorrhea, hoarseness, or sore throat. CARDIOVASCULAR: Denies any exertional angina, dyspnea on exertion, orthopnea, paroxysmal nocturnal dyspnea, palpitations, life-threatening arrhythmias, claudication. PULMONARY: Denies any shortness of breath, cough, phlegm/sputum, hemoptysis, pleuritic chest pain. SLEEP: Denies morning headaches, daytime somnolence or napping. Denies difficulty falling asleep, staying asleep, waking from sleep. Denies knowledge of snoring. GASTROINTESTINAL: Denies any type of dysphagia to either liquids or solids. Denies nausea, vomiting, pyrosis, early satiety, abdominal pain, diarrhea, constipation, or changes in stool consistency or caliber. Denies coffee-ground emesis, hematemesis, hematochezia, or melanotic stools. GENITOURINARY: Denies frequency, urgency, nocturia, hematuria or incontinence (Storage/Irritative symptoms.) Low urinary stream, straining to void, urinary intermittency or hesitancy, splitting of the voiding stream, terminal dribbling. ENDOCRINOLOGIC: Denies polyuria, polydipsia, polyphagia or heat/cold intolerances. HEMATOLOGIC: Denies thrombophilia/previous clots, or coagulopathy/bleeding disorders. ONCOLOGIC: Denies personal history of malignancy. DERMATOLOGIC: Denies rashes or pruritus. PSYCHIATRIC: Denies any suicidal or homicidal ideation. Denies hallucinations. PAST MEDICAL HISTORY: [ diabetes, hypertension, end-stage renal disease on hemodialysis and coronary artery disease ] PAST SURGICAL HISTORY: [ Lava, CABG x5 ] PAST SOCIAL HISTORY: [Patient lives with . Patient denies alcohol, cigarette and recreational drug use ] FAMILY HISTORY: [ Diabetes, cancer, cardiovascular disease and Alzheimer's disease] Coded Allergies: No Known Drug Allergies (Unverified Allergy, Unknown, 01/03/19) PHYSICAL EXAM GENERAL APPEARANCE: The patient is awake, alert, and oriented, in no acute cardiopulmonary distress. NEUROLOGICAL: Cranial nerves II-XII grossly intact. Motor is 5/5 in bilateral upper and lower extremities proximal to distal. No sensory deficits. HEENT: Face is symmetric. Pupils are equal and reactive. Extraocular movements are intact. NECK: Supple. No JVD. No thyromegaly. No submental, submandibular, pre- /postauricular, occipital or supraclavicular lymphadenopathy. CHEST: Normal chest expansion. No Telemetry. LUNGS: Absence of any rales, rhonchi or any wheezing. CARDIOVASCULAR: Regular. S1 and S2 normal. No appreciable rubs, murmurs or gallops. ABDOMEN: Soft, nontender, and nondistended. There is no rebound, voluntary guarding, or rigidity. : Deferred. No Heath. EXTREMITIES: Non-edematous and not cyanotic. No clubbing. Good capillary refill. SKIN: No skin breakdown. Vital Sign (Last 24 Hours) 03/03/25 03/03/25 16:42 22:48 Temp 99.0 Pulse 68 Resp 14 B/P (MAP) 156/53 Pulse Ox 99 O2 Delivery Room Air* O2 Flow Rate 0 FiO2 21 LABS: Laboratory: Test 03/03/25 19:36 03/03/25 19:05 03/03/25 16:57 Range/Units Urine Color LIGHT-YELLOW YELLOW Urine Appearance CLEAR CLEAR Urine pH 7.0 5.0-8.0 Urine Specific [place] 1.010 1.001-1.031 Urine Protein 100 H NEGATIVE mg/dL Urine Glucose (UA) 500 H NEGATIVE mg/dL Urine Ketones NEGATIVE NEGATIVE mg/dL Urine Occult Blood NEGATIVE NEGATIVE Urine Nitrate NEGATIVE NEGATIVE Urine Bilirubin NEGATIVE NEGATIVE mg/dL Urine Urobilinogen 0.2 0.2-1.0 mg/dL Urine Leukocyte Esterase NEGATIVE NEGATIVE Stephanie/uL Urine RBC 0-1 0-1 /HPF Urine WBC 0-1 0-1 /HPF Urine Squamous Epithelial Cells RARE 0-2 /HPF Urine Bacteria None None Seen /HPF Influenza Type A Antigen Negative For Type A NEGATIVE Influenza Type B Antigen Negative For Type B NEGATIVE SARS-CoV-2 Antigen (Rapid) PRESUMPTIVE NEGATIVE NEGATIVE White Blood Count 2.5 L 4.8-10.8 K/uL Red Blood Count 3.15 L 4.50-6.20 MIL/uL Hemoglobin 10.2 L 14.0-18.0 g/dL Hematocrit 32.7 L 42-54 % Mean Corpuscular Volume 103.8 H 79-99 fL Mean Corpuscular Hemoglobin 32.4 27.0-33.0 pg Mean Corpuscular Hemoglobin Concent 31.2 L 32.0-36.0 g/dL Red Cell Distribution Width 15.5 11.0-15.5 % Platelet Count 120 L 130-400 K/uL Mean Platelet Volume 10.6 H 7.5-10.5 fL Immature Granulocyte % (Auto) 0.4 0-1 % Neutrophils (%) (Auto) 41.8 40.0-77.0 % Lymphocytes (%) (Auto) 41.9 21.0-51.0 % Monocytes (%) (Auto) 11.4 3.0-13.0 % Eosinophils (%) (Auto) 3.7 0.0-8.0 % Basophils (%) (Auto) 0.8 0.0-5.0 % Neutrophils # (Auto) 1.0 L 1.8-7.7 K/uL Lymphocytes # (Auto) 1.0 1.0-4.8 K/uL Monocytes # (Auto) 0.3 0.1-1.0 K/uL Eosinophils # (Auto) 0.09 0.00-0.70 K/uL Basophils # (Auto) 0.02 0.00-0.20 K/uL Absolute Immature Granulocyte (auto 0.01 0-1 K/uL Segmented Neutrophils % 43 40-70 % Band Neutrophils % 10 H 0-2 % Lymphocytes % (Manual) 35 22-44 % Monocytes % (Manual) 4 2-9 % Eosinophils % (Manual) 2 1-6 % Nucleated Red Blood Cells 0.0 0.0-0.19 % Differential Comment MANUAL DIFFERENTIAL Reactive Lymphocytes 6 H 0-0 % White Cell Morphology Comment Platelet Morphology Comment LARGE PLTS PRESENT Red Blood Cell Morphology See comments Sodium Level 136 136-145 mmol/L Potassium Level 4.4 3.5-5.1 mmol/L Chloride Level 99 L 101-111 mmol/L Carbon Dioxide Level 28 21-32 mmol/L Blood Urea Nitrogen 31 H 7-18 mg/dL Creatinine 4.2 H 0.5-1.3 mg/dL Glomerular Filtration Rate Calc 14 >90 mL/min Random Glucose 205 H 70-105 mg/dL Total Calcium 8.1 L 8.5-10.1 mg/dL Total Creatine Kinase 60 # 21-232 U/L Troponin I High Sensitivity 51 4-75 ng/L B-Type Natriuretic Peptide 1200 H 0-100 pg/mL Current Medications Medications (Trade) Dose Ordered Sig/Tahmina Route PRN Reason Start Time Stop Time Status Last Admin Dose Admin Acetaminophen (TYLenol 325MG TAB) 650 mg Q4H PRN PO MILD PAIN (1-3) 03/03/25 23:00 04/02/25 22:59 UNV Acetaminophen (TYLenol 325MG TAB) 650 mg Q6H PRN PO TEMPERATURE GREATER THAN 101.5 03/03/25 23:00 04/02/25 22:59 UNV Aspirin (Aspirin 81mg Ec Tab) 81 mg DAILY PO 03/04/25 09:00 04/03/25 08:59 UNV Insulin Human Regular (humuLIN R 100 UNIT/ML 3ML) INSULIN SLIDING SCAL... ACHS SQ 03/04/25 07:30 04/03/25 07:29 UNV Ondansetron HCl (zoFRAN 4MG INJ) 4 mg Q6H PRN IV NAUSEA/VOMITING 03/03/25 23:00 04/02/25 22:59 UNV DIAGNOSTICS / RADIOLOGY: [ ] ASSESSMENT: Unstable angina POA End-stage renal disease on hemodialysis TTHS POA Possible CHF new onset POA Uncontrolled Hypertension POA Chronic anemia due to CKD POA Acute thrombocytopenia POA Uncontrolled diabetes on insulin pump POA PLAN: We will admit patient in medical telemetry We will start on renal dialysis diet We will start on aspirin 81 mg p.o. daily Patient received Lasix 40 mg IV x1 in ER We will start on Famotidine 20 mg p.o. q.48h for GI prophylaxis We will replace electrolytes as needed per protocol We will start on insulin sliding scale AC & HS with hypoglycemia protocol We will add prn medication for fever,pain,cough and nausea We will reconcile home meds once medlist available We will trend troponin q.6 x2 We will seek Cardiology consultation We will seek Nephrology consultation We will request labs in am Further orders to follow depending on above results Case discussed with attending physician and came up with above treatment and plan of care. ADVANCED CARE PLANNING 1. Which of the following were discussed? Hospice Care - No Therapeutic options - Yes Advance Directives - No Other discussions - 2. Discussed with who? Patient and 3. Voluntary nature of this service was explained to the patient? Yes 4. Amount of time spent - ___25____ 5. Reviewed by Physician? (if this service was performed by NPP) Yes Patient seen and examined by me. Agree with note by COMMUTATOR V RING ASSEMBLER SEE ADDITIONAL ORDERS PER CHART DISCUSSED WITH NURSING STAFF PRIMO SEAMAN DIRECTOR OF LAND Mar 03, 2025 22:53
[2025-03-03] MEDS ORDERED: acetaMINOPHEN 325 MG TAB PO PRN ×2 (23:00)
[2025-03-03] MEDS ORDERED: GLUCAGON 1MG KIT 1 MG ML IM PRN (23:00)
[2025-03-03] MEDS ORDERED: ondanSETRON 4MG INJ IV PRN (23:00)
[2025-03-03] MEDS ORDERED: DEXTROSE 50%-WATER 50 ML DISP.SYRIN IV PRN (23:00)
[2025-03-03] MEDS ORDERED: NITROGLYCERIN 0.4 MG SL TAB SL PRN (23:00)
[2025-03-03] MEDS: FAMOTIDINE 20MG TAB PO SCH (23:00)
[2025-03-03] MEDS: MELATONIN 5 MG TABLET PO ONE (23:34)
[2025-03-04] VITALS (23 sets, daily range): BP systolic 105–179; BP diastolic 44–81; PULSE 70–85; RESP 16–20; TEMP 98–99.4; O2SAT 92–96
--- NOTE | 2025-03-04 01:00 | NUR ---
ADMISSION NOTE PATIENT ADMITTED TO ROOM, ALERT, ORIENTED, AND ABLE TO MAKE NEEDS KNOWN. PATIENT ORIENTED TO CALL LIGHT AND FALL POLICIES. AT THIS TIME, PATIENT IS ON ROOM AIR, PHYSICAL ASSESSMENT PERFORMED. CALL LIGHT IN REACH.
[2025-03-04 05:31] LABS: BASOPHILS # (AUTO) 0.01 K/uL (0.00-0.20); BASOPHILS % (AUTO) 0.4 % (0.0-5.0); EOSINOPHILS # (AUTO) 0.07 K/uL (0.00-0.70); EOSINOPHILS % (AUTO) 2.5 % (0.0-8.0); HEMATOCRIT 33.9 % (42-54); IMMATURE GRANULOCYTE ABSOLUTE 0.01 K/uL (0-1); LYMPHOCYTES # (AUTO) 0.9 K/uL (1.0-4.8); LYMPHOCYTES % (AUTO) 32.4 % (21.0-51.0); MEAN CORPUSCULAR HEMOGLOBIN 32.9 pg (27.0-33.0); MEAN CORPUSCULAR HGB CONC 32.2 g/dL (32.0-36.0); MEAN CORPUSCULAR VOLUME 102.4 fL (79-99); MONOCYTES # (AUTO) 0.3 K/uL (0.1-1.0); MONOCYTES % (AUTO) 12.2 % (3.0-13.0); NEUTROPHILS # (AUTO) 1.5 K/uL (1.8-7.7); NEUTROPHILS % (AUTO) 52.1 % (40.0-77.0); PLATELET COUNT (AUTO) 112 K/uL (130-400); RED BLOOD CELL COUNT(AUTO) 3.31 MIL/uL (4.50-6.20); RED CELL DISTRIBUTION WIDTH 15.3 % (11.0-15.5); WHITE BLOOD COUNT (AUTO) 2.8 K/uL (4.8-10.8)
[2025-03-04] MEDS: INSULIN humuLIN R 100 UNIT/ML 3ML SQ SCH (06:00)
[2025-03-04 06:04] LABS: ALBUMIN 3.3 g/dL (3.5-5.0); BILIRUBIN,TOTAL 0.4 mg/dL (0.2-1.0); CREATININE 4.9 mg/dL (0.5-1.3); MAGNESIUM 1.9 mg/dL (1.80-2.40); POTASSIUM 4.4 mmol/L (3.5-5.1); THYROID STIMULATING HORMONE 1.97 uIU/mL (0.36-3.74); TOTAL PROTEIN, SERUM 6.9 g/dL (6.0-8.3)
[2025-03-04 06:12] LABS: B-TYPE NATRIURETIC PEPTIDE 1460 pg/mL (0-100)
--- NOTE | 2025-03-04 06:36 | EKG ---
[facility] Test Date: 2025-03-03 Test Time: 16:37:29 Pat Name: REZA KOHLER Department: [facility] Room: 314 1 Gender: M Hr Advisor: [id number] : 1950 Requested By: ARMANDO ROBERTS Order Number: [id number] Reading MD: Clayton Matthews Measurements Intervals [place] Rate: 70 P: 63 ID: [id number] QRS: 57 QRSD: 103 T: 191 QT: 463 QTc: 500 Interpretive Statements Sinus rhythm Probable left atrial enlargement Nonspecific STT abnormaltiy Compared to ECG 12/26/2024 15:04:10 Atrial premature complex(es) no longer present Right ventricular hypertrophy no longer present T-wave abnormality no longer present Q waves no longer present Electronically Signed On 03-04-2025 10:16:39 CDT by Clayton Matthews Please click the below link to view image of tracing.
[2025-03-04] MEDS: ASPIRIN 81 MG EC TAB PO SCH (08:41)
--- NOTE | 2025-03-04 09:14 | HMCIMG ---
INDICATION: CHEST PAIN TECHNIQUE: CHEST 1VW COMPARISON: 12/30/2024 FINDINGS AND IMPRESSION: Prominent bilateral interstitial markings which may represent bronchitis or vascular congestion in the proper clinical setting. Cardiac silhouette is within normal limits. Mild degenerative changes of the spine. CABG changes are noted.
--- NOTE | 2025-03-04 12:51 | NUR ---
NOTIFIED DR. ENRIQUEZ OF HOME MEDICATIONS. NO NEW ORDERS.
--- NOTE | 2025-03-04 13:17 | PN ---
[facility] PROGRESS NOTE Date of Service: Mar 04, 2025 Time of Service: 13:16 SUBJECTIVE: [ ] 03/04/25 patient was seen examined. Case discussed with the RN and family by the bedside. This is a 74-year-old male with past medical history of diabetes, hypertension, end-stage renal disease on hemodialysis and coronary artery disease with CABG x5 who presents to the ED for complaints of chest pain which started yesterday associated with bilateral arm tingling pain following his hemodialysis treatment. He reports his chest pain is better but the left arm is still hurting REVIEW OF SYSTEMS CONSTITUTIONAL: Denies fevers, chills, or night sweats. No unintentional weight loss reported. NEUROLOGICAL: Denies headache, amaurosis fugax, motor weakness, sensory deficit, vertigo/spinning sensation, gait abnormalities, or tremors. ENT: No hearing loss, otalgia, otorrhea, rhinitis, rhinorrhea, hoarseness, or sore throat. CARDIOVASCULAR: Denies any exertional angina, dyspnea on exertion, orthopnea, paroxysmal nocturnal dyspnea, palpitations, life-threatening arrhythmias, claudication. PULMONARY: Denies any shortness of breath, cough, phlegm/sputum, hemoptysis, pleuritic chest pain. SLEEP: Denies morning headaches, daytime somnolence or napping. Denies difficulty falling asleep, staying asleep, waking from sleep. Denies knowledge of snoring. GASTROINTESTINAL: Denies any type of dysphagia to either liquids or solids. Denies nausea, vomiting, pyrosis, early satiety, abdominal pain, diarrhea, constipation, or changes in stool consistency or caliber. Denies coffee-ground emesis, hematemesis, hematochezia, or melanotic stools. GENITOURINARY: Denies frequency, urgency, nocturia, hematuria or incontinence (Storage/Irritative symptoms.) Low urinary stream, straining to void, urinary intermittency or hesitancy, splitting of the voiding stream, terminal dribbling. ENDOCRINOLOGIC: Denies polyuria, polydipsia, polyphagia or heat/cold intolerances. HEMATOLOGIC: Denies thrombophilia/previous clots, or coagulopathy/bleeding disorders. ONCOLOGIC: Denies personal history of malignancy. DERMATOLOGIC: Denies rashes or pruritus. PSYCHIATRIC: Denies any suicidal or homicidal ideation. Denies hallucinations. PHYSICAL EXAM GENERAL APPEARANCE: The patient is awake, alert, and oriented, in no acute cardiopulmonary distress. NEUROLOGICAL: Cranial nerves II-XII grossly intact. Motor is 5/5 in bilateral upper and lower extremities proximal to distal. No sensory deficits. HEENT: Face is symmetric. Pupils are equal and reactive. Extraocular movements are intact. NECK: Supple. No JVD. No thyromegaly. No submental, submandibular, pre- /postauricular, occipital or supraclavicular lymphadenopathy. CHEST: Normal chest expansion. No Telemetry. LUNGS: Absence of any rales, rhonchi or any wheezing. CARDIOVASCULAR: Regular. S1 and S2 normal. No appreciable rubs, murmurs or gallops. ABDOMEN: Soft, nontender, and nondistended. There is no rebound, voluntary guarding, or rigidity. : Deferred. No Heath. EXTREMITIES: Non-edematous and not cyanotic. No clubbing. Good capillary refill. SKIN: No skin breakdown. Vital Signs (last 8hr) Date Time Temp Pulse Resp B/P (MAP) Pulse Ox O2 Delivery O2 Flow Rate FiO2 03/04/25 11:23 98.6 76 18 168/69 97 Room Air 03/04/25 07:49 99.3 77 18 161/64 92 Room Air LABS: Laboratory: Test 03/04/25 10:45 03/04/25 10:42 03/04/25 05:10 03/03/25 19:36 Range/Units Whole Blood Glucose 131 H 70-110 MG/DL Troponin I High Sensitivity 78 *H 4-75 ng/L White Blood Count 2.8 L 4.8-10.8 K/uL Red Blood Count 3.31 L 4.50-6.20 MIL/uL Hemoglobin 10.9 L 14.0-18.0 g/dL Hematocrit 33.9 L 42-54 % Mean Corpuscular Volume 102.4 H 79-99 fL Mean Corpuscular Hemoglobin 32.9 27.0-33.0 pg Mean Corpuscular Hemoglobin Concent 32.2 32.0-36.0 g/dL Red Cell Distribution Width 15.3 11.0-15.5 % Platelet Count 112 L 130-400 K/uL Mean Platelet Volume 11.4 H 7.5-10.5 fL Immature Granulocyte % (Auto) 0.4 0-1 % Neutrophils (%) (Auto) 52.1 40.0-77.0 % Lymphocytes (%) (Auto) 32.4 21.0-51.0 % Monocytes (%) (Auto) 12.2 3.0-13.0 % Eosinophils (%) (Auto) 2.5 0.0-8.0 % Basophils (%) (Auto) 0.4 0.0-5.0 % Neutrophils # (Auto) 1.5 L 1.8-7.7 K/uL Lymphocytes # (Auto) 0.9 L 1.0-4.8 K/uL Monocytes # (Auto) 0.3 0.1-1.0 K/uL Eosinophils # (Auto) 0.07 0.00-0.70 K/uL Basophils # (Auto) 0.01 0.00-0.20 K/uL Absolute Immature Granulocyte (auto 0.01 0-1 K/uL Nucleated Red Blood Cells 0.0 0.0-0.19 % Sodium Level 139 136-145 mmol/L Potassium Level 4.4 3.5-5.1 mmol/L Chloride Level 102 101-111 mmol/L Carbon Dioxide Level 26 21-32 mmol/L Blood Urea Nitrogen 36 H 7-18 mg/dL Creatinine 4.9 H 0.5-1.3 mg/dL Glomerular Filtration Rate Calc 12 >90 mL/min Random Glucose 148 H 70-105 mg/dL Total Calcium 8.3 L 8.5-10.1 mg/dL Magnesium Level 1.90 1.80-2.40 mg/dL Total Bilirubin 0.4 0.2-1.0 mg/dL Aspartate Amino Transf (AST/SGOT) 31 10-37 U/L Alanine Aminotransferase (ALT/SGPT) 42 12-78 U/L Alkaline Phosphatase 65 50-136 U/L B-Type Natriuretic Peptide 1460 H 0-100 pg/mL Total Protein 6.9 6.0-8.3 g/dL Albumin 3.3 L 3.5-5.0 g/dL Thyroid Stimulating Hormone (TSH) 1.97 0.36-3.74 uIU/mL Urine Color LIGHT-YELLOW YELLOW Urine Appearance CLEAR CLEAR Urine pH 7.0 5.0-8.0 Urine Specific [place] 1.010 1.001-1.031 Urine Protein 100 H NEGATIVE mg/dL Urine Glucose (UA) 500 H NEGATIVE mg/dL Urine Ketones NEGATIVE NEGATIVE mg/dL Urine Occult Blood NEGATIVE NEGATIVE Urine Nitrate NEGATIVE NEGATIVE Urine Bilirubin NEGATIVE NEGATIVE mg/dL Urine Urobilinogen 0.2 0.2-1.0 mg/dL Urine Leukocyte Esterase NEGATIVE NEGATIVE Stephanie/uL Urine RBC 0-1 0-1 /HPF Urine WBC 0-1 0-1 /HPF Urine Squamous Epithelial Cells RARE 0-2 /HPF Urine Bacteria None None Seen /HPF Test 03/03/25 19:05 03/03/25 16:57 Range/Units Influenza Type A Antigen Negative For Type A NEGATIVE Influenza Type B Antigen Negative For Type B NEGATIVE SARS-CoV-2 Antigen (Rapid) PRESUMPTIVE NEGATIVE NEGATIVE Segmented Neutrophils % 43 40-70 % Band Neutrophils % 10 H 0-2 % Lymphocytes % (Manual) 35 22-44 % Monocytes % (Manual) 4 2-9 % Eosinophils % (Manual) 2 1-6 % Differential Comment MANUAL DIFFERENTIAL Reactive Lymphocytes 6 H 0-0 % White Cell Morphology Comment Platelet Morphology Comment LARGE PLTS PRESENT Red Blood Cell Morphology See comments Total Creatine Kinase 60 # 21-232 U/L Current Medications Medications (Trade) Dose Ordered Sig/Tahmina Route PRN Reason Start Time Stop Time Status Last Admin Dose Admin Acetaminophen (TYLenol 325MG TAB) 650 mg Q4H PRN PO MILD PAIN (1-3) 03/03/25 23:00 04/02/25 22:59 Acetaminophen (TYLenol 325MG TAB) 650 mg Q6H PRN PO TEMPERATURE GREATER THAN 101.5 03/03/25 23:00 04/02/25 22:59 Aspirin (Aspirin 81mg Ec Tab) 81 mg DAILY PO 03/04/25 09:00 04/03/25 08:59 03/04/25 08:41 81 MG Dextrose (D50w) 50 ml AD PRN IV HYPOGLYCEMIA PROTOCOL 03/03/25 23:00 04/02/25 22:59 Famotidine (Pepcid 20mg Tab) 20 mg Q48H PO 03/03/25 23:00 04/02/25 22:59 Glucagon (Glucagon 1mg Kit) 1 mg AD PRN IM HYPOGLYCEMIA PROTOCOL 03/03/25 23:00 04/02/25 22:59 Insulin Human Regular (humuLIN R 100 UNIT/ML 3ML) INSULIN SLIDING SCAL... ACHS SQ 03/04/25 07:30 04/03/25 07:29 Isosorbide Mononitrate (Imdur 30mg Sr) 30 mg DAILY PO 03/05/25 09:00 04/04/25 08:59 Miscellaneous Medication (Aspirin ) 81 mg HS PO 03/04/25 21:00 03/04/25 12:03 DC Nitroglycerin (Nitrostat) 0.4 mg PROTOCOL PRN SL CHEST PAIN 03/03/25 23:00 04/02/25 22:59 Ondansetron HCl (zoFRAN 4MG INJ) 4 mg Q6H PRN IV NAUSEA/VOMITING 03/03/25 23:00 04/02/25 22:59 Sevelamer HCl (RENAgel 800 MG TAB) 800 mg TIDMEALS PO 03/04/25 17:00 04/03/25 16:59 DIAGNOSTICS / RADIOLOGY: [ ] ASSESSMENT: Unstable angina POA End-stage renal disease on hemodialysis TTHS POA Possible CHF new onset POA Uncontrolled Hypertension POA Chronic anemia due to CKD POA Acute thrombocytopenia POA Uncontrolled diabetes on insulin pump POA PLAN: We will admit patient in medical telemetry We will start on renal dialysis diet We will start on aspirin 81 mg p.o. daily Patient received Lasix 40 mg IV x1 in ER We will start on Famotidine 20 mg p.o. q.48h for GI prophylaxis We will replace electrolytes as needed per protocol We will start on insulin sliding scale AC & HS with hypoglycemia protocol We will add prn medication for fever,pain,cough and nausea We will reconcile home meds once medlist available We will trend troponin q.6 x2 We will seek Cardiology consultation We will seek Nephrology consultation We will request labs in am Further orders to follow depending on above results Case discussed with attending physician and came up with above treatment and plan of care. ROYCE ENRIQUEZ MD Mar 04, 2025 13:17
--- NOTE | 2025-03-04 14:27 | NUR ---
DCP: HOME Pt currently lives with Donna Mccarthy [phone]. Pt did not report any insecurities with food, detention, and/or utilities. Pt has a cane, walker, and cane. Pt has a provider that goes 6hrs on days that he has dialysis to help him get ready for the day. Pt goes to dialysis at [facility] on , , Thursday. Pt can complete ADLs independent. Pt sees a doctor at the [facility] and uses the [facility] for any RX needs. At [place] pt will go home and family will assist with transportation. Addendum: 03/04/25 at 1432 by SAM HOSKINS SS Amended: Links added.
[2025-03-04] MEDS: 0.9%NACL 1000ML 1,000 ML IV SCH (15:00)
[2025-03-04] MEDS: sevELAMer HCL 800 MG TABLET PO SCH (16:32)
--- NOTE | 2025-03-04 17:28 | PN ---
DIALYSIS NOTE SUBJECTIVE: The patient is seen and evaluated on hemodialysis, prescription noted. OBJECTIVE: VITAL SIGNS: Blood pressure is 136/74. CARDIOVASCULAR: Regular. LUNGS: Coarse. IMPRESSION: ESRD. PLAN: The patient will continue with maximal ultrafiltration as blood pressure allows. TID: [id number] RECEIPT: [id number]
--- NOTE | 2025-03-04 17:34 | CONS ---
REFERRING PHYSICIAN: Damian Ortiz MD REASON FOR CONSULTATION: Coronary artery disease and ESRD. HISTORY OF PRESENT ILLNESS: A 74-year-old male with history of diabetes mellitus hypertension. He has a history of end-stage renal disease on dialysis 3 times per week. The patient with a history of known coronary artery disease, status post CABG in the past. The patient presented to the hospital with complaints of unstable angina. The patient was found to have significant chest pain as well as left-sided arm weakness. The patient's initial troponin has been elevated. The patient does follow up with a regional economic liaison as an outpatient. He has a history of end-stage renal disease on dialysis on a Thursday, , and Thursday schedule and he is being seen in consultation for all of the above. PAST MEDICAL HISTORY: Diabetes mellitus, hypertension, ESRD, coronary artery disease. PAST SURGICAL HISTORY: AV access, CABG. SOCIAL HISTORY: He lives with his family. There is no active tobacco use. FAMILY HISTORY: There is no renal disease in the family. ALLERGIES: There are no known drug allergies. MEDICATIONS: Noted. REVIEW OF SYSTEMS: CONSTITUTIONAL: He is feeling weak and tired. HEENT: No change in vision. No change in hearing. CARDIOVASCULAR: There is no current chest pain or palpitations. PULMONARY: He has chronic shortness of breath. GASTROINTESTINAL: He is tolerating a diet. MUSCULOSKELETAL: Complaints of weakness. NEUROLOGIC: No history of seizures or focal deficits. PSYCHIATRIC: No history of hallucinations or psychosis. ENDOCRINE: Diabetes mellitus. No history of thyroid disease. HEME: History of anemia. No history of malignancy. PHYSICAL EXAMINATION: VITAL SIGNS: Blood pressure is 168/69, pulse in the 70s. He is afebrile. GENERAL: He is a chronically ill male, elderly, lying in bed on the medical floor. HEENT: Head is atraumatic. Pupils are equal, roving to light. Oropharynx is without exudate. Nares clear. NECK: There is no JVP. There is no thyromegaly. No mass. CARDIOVASCULAR: Regular. There is no S3 or S4 gallop. LUNGS: Coarse with equal thoracic movement. ABDOMEN: Soft, nondistended, nontender. EXTREMITIES: Reveal no clubbing, no cyanosis. NEUROLOGICAL: He is awake. He is alert. He is oriented. SKIN: Reveals no rash or nodules. BACK: There is no CVA tenderness. No back deformity. LABORATORY DATA: Sodium 139, potassium is 4.4, BUN 36, creatinine 4.9, troponin 78. Hemoglobin 10, hematocrit 33, white blood cell count 3000, platelet count 112. Chest x-ray reveals cardiomegaly as well as pulmonary vascular congestion. IMPRESSION: * Coronary artery disease with unstable angina. * Pulmonary vascular congestion, volume overload. * Diabetes mellitus. * Hypertension. * End-stage renal disease. PLAN: The patient presents with significant angina. The patient's troponins are all noted. The patient is to be seen by Cardiology. The patient's chest x-ray does reveal significant pulmonary vascular congestion. The patient will receive urgent dialysis on the day of this consultation, will continue on a Thursday, , and Thursday schedule. All labs including phosphorus will be checked in the morning. The patient can be resumed on his phosphate binders. The patient can also be resumed on his antihypertensive medications. We will continue to follow the patient closely. The patient and family at the bedside, multiple questions were all answered. The patient is also to be seen by Cardiology. TID: [id number] RECEIPT: [id number]
--- NOTE | 2025-03-04 18:51 | CONS ---
Patient has presented here with complaints of chest pressure that was thought to be typical of angina pectoris but his troponins are normal except for a single troponin of 78, not unusual for a patient on dialysis. Also, the discomfort he describes GEORGI is a pressure-like sensation around the chest associated with numbness of both arms that was persistent and unchanging over a period of three solid days. It was unrelenting, not exacerbated by ambulation or other activity, did not radiate to the jaw and was relieved after dialysis here. Patient has hypertension, history of heavy tobacco use, and diabetic nephropathy. He also has peripheral arterial disease with monophasic flow in the right superficial femoral and moderate stenosis in the left common femoral, SFA and mid SFA occlusion on the left. He is also known to have 50-60% carotid stenoses. 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 During that stay the patient was found to have a 45% ejection fraction, down from 55%. He has a past history of three-vessel coronary disease treated with a five vessel coronary bypass with CASSY to LAD, vein grafts to D2/OM1/sequential PDA- posterolateral December 2018. A more recent angiogram apparently demonstrated inferior akinesia with occluded vein graft to the posterior descending and posterolateral, preserved grafts to D1/OM and TRISTAN to LAD. Physical exam shows a comfortable appearing patient who is oriented in all spheres and cooperative with history and exam. Currently no JVD, normal carotid volume, no rales or rhonchi, nonlabored respiration. PMI is normal and S1 and S2 are soft with no murmur and no S3. Abdomen is unremarkable, nontender, normal bowel sounds. No edema. Integument is intact and he is neurologically normal. Impression and recommendation: I think the patient's symptoms were simply from volume overload and not from an unstable coronary syndrome. Angina does not persist for three continuous days at the same intensity and in unrelenting fashion. I think he was volume overloaded and may have been hyperventilating a little bit from that to account for the paresthesias. His troponins are unremarkable and if he had three days of angina they would be abnormal. The patient can be discharged when nephrology is certain he is at dry weight. Patient History: Alzheimer's disease FATHER, Carcinomas MOTHER, (Melanoma; unknown age of onset) Cardiovascular disease MOTHER, Diabetes mellitus FATHER, Vitals/Labs Vital Signs Date Time Temp Pulse Resp B/P (MAP) Pulse Ox O2 Delivery O2 Flow Rate FiO2 03/04/25 17:10 98.1 78 16 167/65 Room Air 03/04/25 15:56 95 03/04/25 08:00 0 21 Laboratory Tests 03/04/25 05:10 Allergies: Coded Allergies: No Known Drug Allergies (Unverified Allergy, Unknown, 01/03/19) Medications Current Medications Furosemide 40 mg ONCE ONCE IV Last administered on 03/03/25at 20:58; Start 03/03/25 at 21:00; Stop 03/03/25 at 21:01; Status DC Acetaminophen 650 mg Q6H PRN PO; Start 03/03/25 at 23:00; Stop 04/02/25 at 22:59 Acetaminophen 650 mg Q4H PRN PO; Start 03/03/25 at 23:00; Stop 04/02/25 at 22:59 Ondansetron HCl 4 mg Q6H PRN IV; Start 03/03/25 at 23:00; Stop 04/02/25 at 22:59 Nitroglycerin 0.4 mg PROTOCOL PRN SL; Start 03/03/25 at 23:00; Stop 04/02/25 at 22:59 Famotidine 20 mg Q48H PO; Start 03/03/25 at 23:00; Stop 04/02/25 at 22:59 Aspirin 81 mg DAILY PO Last administered on 03/04/25at 08:41; Start 03/04/25 at 09:00; Stop 04/03/25 at 08:59 Insulin Human Regular INSULIN SLIDING SCAL... ACHS SQ; Start 03/04/25 at 07:30; Stop 04/03/25 at 07:29 Dextrose 50 ml AD PRN IV; Start 03/03/25 at 23:00; Stop 04/02/25 at 22:59 Glucagon 1 mg AD PRN IM; Start 03/03/25 at 23:00; Stop 04/02/25 at 22:59 Melatonin 5 mg ONCE ONCE PO Last administered on 03/03/25at 23:34; Start 03/03/25 at 23:30; Stop 03/03/25 at 23:31; Status DC Isosorbide Mononitrate 30 mg DAILY PO; Start 03/05/25 at 09:00; Stop 04/04/25 at 08:59 Miscellaneous Medication 81 mg HS PO; Start 03/04/25 at 21:00; Stop 03/04/25 at 12:03; Status DC Sevelamer HCl 800 mg TIDMEALS PO Last administered on 03/04/25at 16:32; Start 03/04/25 at 17:00; Stop 04/03/25 at 16:59 Sodium Chloride 1,000 ml @ 0 mls/hr ONCE IV Last administered on 03/04/25at 16:14; Start 03/04/25 at 15:00; Stop 04/03/25 at 14:59 EDER CHAVEZ MD Mar 04, 2025 18:51
[2025-03-04] MEDS ORDERED: ASPIRIN 81 MG PO SCH (21:00)
[2025-03-04] MEDS: cloNIDine HCL 0.1 MG TABLET PO ONE (21:50)
[2025-03-04] MEDS ORDERED: PHARMACY COMMUNICATION MISC SCH (22:00)
[2025-03-05 02:12] LABS: HEPATITIS B SURFACE ANTIGEN Non-Reactive (Nonreactive)
[2025-03-05 03:41] VITALS: BP 133/53; PULSE 73; RESP 20; TEMP 98
[2025-03-05 04:20] LABS: HEPATITIS B CORE AB TOTAL Non-Reactive (Nonreactive); HEPATITIS B SURFACE ANTIBODY Negative (Reactive)
[2025-03-05 05:28] LABS: BASOPHILS # (AUTO) 0.01 K/uL (0.00-0.20); BASOPHILS % (AUTO) 0.4 % (0.0-5.0); EOSINOPHILS # (AUTO) 0.05 K/uL (0.00-0.70); EOSINOPHILS % (AUTO) 2.1 % (0.0-8.0); HEMATOCRIT 34.6 % (42-54); LYMPHOCYTES # (AUTO) 1.1 K/uL (1.0-4.8); LYMPHOCYTES % (AUTO) 45.6 % (21.0-51.0); MEAN CORPUSCULAR HEMOGLOBIN 32.3 pg (27.0-33.0); MEAN CORPUSCULAR HGB CONC 31.2 g/dL (32.0-36.0); MEAN CORPUSCULAR VOLUME 103.6 fL (79-99); MONOCYTES # (AUTO) 0.3 K/uL (0.1-1.0); MONOCYTES % (AUTO) 13.9 % (3.0-13.0); NEUTROPHILS # (AUTO) 0.9 K/uL (1.8-7.7); PLATELET COUNT (AUTO) 105 K/uL (130-400); RED BLOOD CELL COUNT(AUTO) 3.34 MIL/uL (4.50-6.20); WHITE BLOOD COUNT (AUTO) 2.4 K/uL (4.8-10.8)
[2025-03-05 05:49] LABS: CREATININE 4.5 mg/dL (0.5-1.3); PHOSPHORUS 4.2 mg/dL (2.5-4.9); POTASSIUM 3.9 mmol/L (3.5-5.1)
[2025-03-05 06:28] LABS: LYMPHOCYTES % (MANUAL) 54 % (22-44); MONOCYTES % (MANUAL) 8 % (2-9); SEGMENTED NEUTROPHILS % 38 % (40-70); TOTAL CELLS COUNTED 100
[2025-03-05 06:29] LABS: MAN.DIFF COMMENT-IMPRESSION MANUAL DIFFERENTIAL
[2025-03-05 06:30] LABS: PLATELET MORPHOLOGY COMMENT SLIGHTLY DECREASED
[2025-03-05 07:58] VITALS: BP 130/48; PULSE 65; RESP 18; TEMP 98.4
[2025-03-05 08:00] VITALS: O2SAT 92
[2025-03-05] MEDS: ISOSORBIDE MONO 30MG SR TAB PO SCH (09:12)
[2025-03-05 11:29] VITALS: BP 122/57; PULSE 63; RESP 18; TEMP 98.2
--- NOTE | 2025-03-05 20:00 | PN ---
FOLLOWUP PROGRESS NOTE SUBJECTIVE: A 74-year-old male with history of diabetes mellitus and hypertension. He has a history of known coronary artery disease. The patient initially admitted with unstable angina. The patient was seen by Cardiology. He did receive dialysis yesterday while in the hospital. The patient with 1.4 L of ultrafiltration and the patient is being seen as a followup visit for all of the above. REVIEW OF SYSTEMS: CONSTITUTIONAL: He is feeling much improved. HEENT: No change in vision. No change in hearing. CARDIOVASCULAR: There is no current chest pain or palpitations. PULMONARY: He denies any shortness of breath. GASTROINTESTINAL: He is now tolerating a diet. MUSCULOSKELETAL: Complains of weakness. OBJECTIVE: VITAL SIGNS: Blood pressure 130/48, pulse 60s. GENERAL: Chronically ill male, elderly, lying in bed on the medical floor. HEENT: Head is atraumatic. Pupils are equal, roving to light. Oropharynx is without exudate. Nares are clear. NECK: There is no JVP. There is no thyromegaly, no mass. CARDIOVASCULAR: Regular. There is no S3, S4 gallop. LUNGS: Coarse with equal thoracic movement. ABDOMEN: Soft, nondistended, and nontender. EXTREMITIES: There is no clubbing, no cyanosis. NEUROLOGICAL: He is awake. He is alert. LABORATORY DATA: BUN 29, creatinine is 4.5. Hemoglobin 10, hematocrit 34. IMPRESSION: * Unstable angina. * Diabetes mellitus. * Hypertension. * ESRD. PLAN: The patient's chest pain has resolved. Blood pressure is under much better control. He did receive dialysis yesterday in the hospital without difficulty. The patient was seen by Cardiology. I did have a long discussion with the patient and family. The patient is encouraged with his compliance with his blood pressure medications. The patient can safely be discharged from a renal standpoint. If the patient is discharged, he will follow up at the dialysis unit. TID: [id number] RECEIPT: [id number]
== END 2025-03-05 13:30 | disposition home or self-care (01) | DRG 302 ==
LOC: EDH 16:41 → EDHIP 22:42 → 3CH 03-04 00:09
PROVIDERS: ADMIT Internal Medicine; ATTEND Internal Medicine
PROC: 5A1D70Z Performance of Urinary Filtration, Intermittent, Less than 6 Hours Per Day (ICD-10-PCS; principal; 2025-03-04)
DX: I25.110 Atherosclerotic heart disease of native coronary artery with unstable angina pectoris (principal); N18.6 End stage renal disease; I12.0 Hypertensive chronic kidney disease with stage 5 chronic kidney disease or end stage renal disease; D63.1 Anemia in chronic kidney disease; D69.6 Thrombocytopenia, unspecified; E11.22 Type 2 diabetes mellitus with diabetic chronic kidney disease; E78.00 Pure hypercholesterolemia, unspecified; E87.70 Fluid overload, unspecified; Z20.822 Contact with and (suspected) exposure to COVID-19; G30.9 Alzheimer's disease, unspecified; Z96.41 Presence of insulin pump (external) (internal); Z79.4 Long term (current) use of insulin; Z79.82 Long term (current) use of aspirin; Z80.8 Family history of malignant neoplasm of other organs or systems; Z82.0 Family history of epilepsy and other diseases of the nervous system; Z82.49 Family history of ischemic heart disease and other diseases of the circulatory system; Z83.3 Family history of diabetes mellitus; Z95.1 Presence of aortocoronary bypass graft; Z99.2 Dependence on renal dialysis
CPT/HCPCS: 36415; 71045; 80048; 80053; 81001; 82550; 82948; 83735; 83880; 84100; 84443; 84484; 85025; 86704; 86706; 87340; 87426; 87804; 90935; 93005; 96374; 99285; G0378; J1815; J1938

== ENCOUNTER 2025-04-01 14:19 | Emergency (ER) | payer OTHER ==
[~2025-04-01] VITALS: Ht 172.7 cm; Wt 72.6 kg
[~2025-04-01 14:19] MED LIST changes: +AMLO-257 PO; -AMLO-258 PO; +ASPI-1719 PO; -ASPI-556 PO; -CHOL100040 PO; +CHOL100046 PO; -FISH1CAP20 PO; -INSNOV SQ; +INSU100C6 SQ; +ISOS-58 PO; +OMEG100033 PO; +SEVE2.4P3 PO; +VITAD400 PO
[2025-04-01 14:27] VITALS: TEMP 98.5
[2025-04-01 16:00] VITALS: BP 133/83; PULSE 74; RESP 16; O2SAT 99
--- NOTE | 2025-04-01 16:14 | ERN ---
General Chief Complaint: Other Problems Stated Complaint: LAVA ISSUE Time Seen by MD: 14:25 Source: patient History of Present Illness Initial Comments Patient is a 74-year-old male coming in to be evaluated for upper extremity Lava evaluation. Patient states that they has been an evaluation of the left upper extremity in his concerning for a clot. Allergies: Coded Allergies: No Known Drug Allergies (Unverified Allergy, Unknown, 01/03/19) Home Meds Reported Medications Isosorbide Mononitrate (Isosorbide Mononitrate) 20 Mg Tablet, 30 MG PO DAILY, TAB 03/03/25 Metoprolol Tartrate (Metoprolol Tartrate) 50 Mg Tablet, 1 TAB PO HS for 30 Days, #60 TAB 0 Refills 03/03/25 Amlodipine Besylate (Amlodipine Besylate) 5 Mg Tablet, 1 TAB PO DAILY for 30 Days, #30 TAB 0 Refills 03/03/25 Aspirin (Aspirin) 81 Mg Tablet, 81 MG PO HS, TAB 03/03/25 Cholecalciferol (Vitamin D3) (Vitamin D3) 25 Mcg (1000 Unit) Capsule, 25 MCG PO DAILY, CAP 03/03/25 Calcium Carbonate (Calcium) 600 Mg Calcium (1500 Mg) Tablet, 1 TAB PO BID for 30 Days, #60 TAB 0 Refills 03/03/25 Sevelamer Carbonate (Sevelamer Carbonate) 2.4 Gram Powd.pack, 800 MG PO TID 03/03/25 Cholecalciferol (Vitamin D3) 10 Mcg (400 Unit) Tablet, 25 MCG PO DAILY, TAB 03/03/25 Atorvastatin Calcium (Atorvastatin Calcium) 10 Mg Tablet, 5 MG PO HS, TAB 03/03/25 Keystone-3/Dha/Epa/Fish Oil (Fish Oil 1,000 mg Softgel) 1,000 Mg (120 Mg-180 Mg) Capsule, 1000 MG PO BID, CAP 03/03/25 Ferrous Sulfate (Ferrous Sulfate) 325 Mg (65 Mg Iron) Ectab, 1 TAB PO DAILY for 30 Days, #30 TAB 0 Refills 03/03/25 Insulin Aspart (Novolog) 100 Unit/Ml Cartridge, 0 SQ CONTINOUS, CARTRIDGE 03/03/25 Sevelamer HCl (Sevelamer HCl) 800 Mg Tablet, 1600 MG PO BID, TAB 12/21/24 Past Medical History Past Medical History: High Cholesterol, Heart Disease, Renal Disese Past Surgical History: LAVA Surgical History [facility], ROS Dictation CONSTITUTIONAL: No chills, no fever, no weakness, no diaphoresis, no malaise. HEAD/FACE: No signs of trauma. EENT: No eye pain, no blurred vision, no tearing, no double vision, no ear pain, no ear discharge, no nose pain, no nasal congestion, no throat pain, no throat swelling, no mouth pain. RESPIRATORY: No cough, no orthopnea, no SOB, no stridor, no wheezing. CARDIOVASCULAR: No chest pain, no edema, no palpitations, no syncope. GASTROINTESTINAL/ABDOMINAL: No abdominal pain, no constipation, no diarrhea, no nausea, no vomiting. GENITOURINARY: No abnormal discharge, no dysuria, no frequent urination, no hematuria. No complaints of pain in the genitals. MUSCULOSKELETAL: No back pain, no gout, no joint pain, no joint swelling, no muscle pain, no muscle stiffness, no neck pain. INTEGUMENTARY: No change in color, no change in hair/nails, no dryness, no lesion, lumps, rash. NEUROLOGICAL/PSYCH: No anxiety, not depressed, no emotional problem, no headache, no numbness, no pre-existing deficit, no history of seizures, no tremors, no weakness. HEMATOLOGIC/LYMPHATIC: Not anemic, no history of blood clots, no apparent bleeding, no bruising, glands not swollen. All Systems Negative, Except as Noted. Physical Exam Physical Exam Dictation VITAL SIGNS: Reviewed. GENERAL APPEARANCE: Alert, oriented x3, no acute distress, obese. HEAD AND FACE: Non-traumatic. EYES: PERRL, pink conjunctivas, eyelid no trauma, anterior chamber clear. EARS: Pinnas intact and no signs of trauma or erythema. Ear canals clear and no discharge. TMs no erythema. NOSE: No discharge, no bleeding. OROPHARYNX: Mouth normal, teeth no caries, tongue pink. Pharynx clear, no erythema. Tonsils no exudates, no abscesses noted. Mucous membrane moist. NECK: Supple, non-tender, no thyromegaly, no masses, no JVD, no bruits. BREAST: Deferred. CHEST: No tenderness, no crepitus, no paradoxical movement, no retractions. LUNGS: Clear, well-ventilated, symmetric, no rales, no wheezing, no rhonchi, no stridor, good breath sounds bilaterally. HEART: Regular rate, regular rhythm, no murmur, no gallops. VASCULAR: No peripheral edema. ABDOMEN: Soft, positive bowel sounds, nondistended, no guarding, nontender, no rebound, no masses no hepatomegaly, no splenomegaly, no Salcedo's sign, no hernias. RECTAL: Deferred. GENITAL: Deferred. NEUROLOGICAL: Normal speech, gross motor function intact, gross sensory function intact. MUSCULOSKELETAL: Neck nontender, full range of motion, back nontender, full range of motion. EXTREMITIES: Nontender, full range of motion. Left Lava thrill SKIN: Color pink, dry, no turgor, no rash, no lacerations, no abrasions, no contusions. LYMPHATICS: Deferred. Results Laboratory and Microbiology Labs Reviewed?: Yes EKG/XRAY/US/CT/MRI Ultrasound Comment Ultrasound Lava-NAD MDM MDM: Differential diagnosis: Lab evaluation, DVT, Rationale: Tests considered and ordered secondary to shared decision making include: Previous outside records reviewed: Old ER visits. Risk of complication and/or morbidity or mortality of patient management: None Medications-Per medication reconciliation Need for hospitalization: Patient does not meet criteria for hospitalization. Patient is a 74-year-old male coming in to be evaluated for Lava. Ultrasound of Lava both venous and arterial are negative for acute findings. I did advised patient appropriate follow up with PCP. Patient will be discharged in stable condition ED Course Orders Procedure Category Date Status Time Us Arterial Unila Upp US 04/01/25 Taken Ext Dupl 14:41 Vital Signs Date Time Temp Pulse Resp B/P (MAP) Pulse Ox O2 Delivery O2 Flow Rate FiO2 04/01/25 14:27 98.4 61 12 135/41 96 Room Air* 0 21 04/01/25 14:24 98.4 61 18 135/41 96 Room Air 0 DX & DISP Disposition: Discharge Departure Impression: Primary Impression: Left upper extremity swelling Condition: Stable Additional Instructions: FOLLOW-UP WITH PRIMARY CARE PROVIDER IN 1 TO 2 DAYS. TAKE MEDICATIONS DIRECTED HERE IN THE EMERGENCY ROOM. OKAY TO CONTINUE HOME MEDICATIONS UNLESS OTHERWISE DISCUSSED DURING YOUR VISIT IN THE EMERGENCY ROOM TODAY. RETURN TO YOUR NEAREST EMERGENCY ROOM IF SYMPTOMS WORSEN OR IF THERE IS NO IMPROVEMENT. CALL 911 IF YOU NEED IMMEDIATE ASSISTANCE. TAKE TYLENOL [id number] NEEDED AND IF NO CONTRAINDICATIONS ARE PRESENT. INCREASE ORAL HYDRATION. A WOUND CULTURE OR URINE CULTURE WAS ORDERED HERE IN THE EMERGENCY ROOM DEPARTMENT PLEASE FOLLOW-UP WITH PRIMARY CARE PROVIDER AND ADVISE THEM TO GET REPORTS FROM OUR FACILITY. IF YOU HAD ANY LIDA WRAP/SPLINTS THAT WERE APPLIED HERE, PLEASE DO NOT REMOVE THEM UNTIL YOU SEE YOUR PRIMARY CARE OR SPECIALTY. Referrals: Referrals: SELF,REFERRAL (PCP) MICHAEL JACOBS MD Time of Disposition: 16:14 CRISTHIAN ZALDIVAR MD Apr 01, 2025 16:14
--- NOTE | 2025-04-01 19:45 | HMCIMG ---
EXAM: US Duplex left Upper Extremity Arteriovenous fistula. CLINICAL HISTORY: left upper extremity TECHNIQUE: Real-time ultrasound scan of the arteries of the left upper extremity with 2-D andrade scale, color Doppler flow and spectral waveform analysis. COMPARISON: 02/13. FINDINGS: Brachiocephalic fistula with monophasic flow and high PSV of 711 cm/sec. Feeding artery is brachial artery. Proximal branchial artery shows monophasic waveforms with PSV of 243 cm/sec. Distal branchial artery shows monophasic waveforms with PSV of 125 cm/sec. Draining vein is cephalic vein. Cephalic vein just cranial to anastomosis shows monophasic flow with PSV of 84 cm/sec. Cephalic vein further cranial to anastomosis shows monophasic flow with PSV of 65 cm/sec. SUBCLAVIAN ARTERY: No occlusion or significant stenosis. Monophasic waveforms with PSV of 110 cm/sec. AXILLARY ARTERY: No occlusion or significant stenosis. Monophasic waveforms with PSV of 191 cm/sec. RADIAL ARTERY: No occlusion or significant stenosis. Monophasic waveforms with PSV of 37 cm/sec. ULNAR ARTERY: No occlusion or significant stenosis. Monophasic waveforms with PSV of 25 cm/sec. IMPRESSION: 1. Patent left brachiocephalic arteriovenous fistula with persistent elevated PSV of 711 cm/sec at the anastomosis. 2. No hematoma or pseudoaneurysm appreciated. /[place]
== END 2025-04-01 16:32 | disposition home or self-care (01) ==
LOC: EDH 14:19
DX: M79.89 Other specified soft tissue disorders (principal); E78.00 Pure hypercholesterolemia, unspecified; Z79.82 Long term (current) use of aspirin; Z79.899 Other long term (current) drug therapy
CPT/HCPCS: 93931; 99284